=== PATIENT | female | born 1975 | race Caucasian/White ===

== ENCOUNTER 2016-11-20 15:05 | Emergency (ER) | payer OTHER ==
[~2016-11-20 15:05] MED LIST: CHLORTHALIDONE50 MG PO; HYCET1 ML PO; METFORMIN HCL500 MG PO
--- NOTE | 2016-11-20 16:25 | DIAGNOSTIC IMAGING REPORT ---
PROCEDURE: XR CHEST 1 VIEW INDICATION: CHEST PAIN TECHNIQUE: Single view chest. 1550 hours COMPARISON: 01/28/2010 FINDINGS: The cardiopulmonary contour and central vasculature are stable, within normal limits. The lungs are clear without focal consolidation, pleural effusion or pneumothorax. The osseous structures are intact. IMPRESSION: 1. No evidence of acute cardiopulmonary disease.
--- NOTE | 2016-11-20 16:44 | DIAGNOSTIC IMAGING REPORT ---
PROCEDURE: CT HEAD WITHOUT CONTRAST INDICATION: STROKE SYMPTOMS PAST 4 - 5 HOURS TECHNIQUE: Axial CT images were acquired through the head. Coronal and sagittal reformations were created. COMPARISON: None. FINDINGS: No acute intraparenchymal or extra-axial hemorrhages. No mass, mass effect or midline shift. Normal ventricles and basal cisterns. Normal liu-white matter differentiation without edema. No fractures. Maxillary sinusitis. Normal extracranial soft tissues including orbits. IMPRESSION: 1. No CT evidence of acute intracranial process. 2. Maxillary sinusitis. All CT scans at this facility use dose modulation, iterative reconstruction, and/or weight-based dosing when appropriate to reduce radiation dose to as low as reasonably achievable.
--- NOTE | 2016-11-20 18:10 | ED CLINICAL REPORT ---
Clinical Report - Physicians/Mid Levels [facility] [address] [place] [address] 11/20/2016 15:06 Patient: TAMIE IBANEZ Time Seen: 1509; initial patient contact. Arrived- By private vehicle. Historian- patient. HISTORY OF PRESENT ILLNESS Chief Complaint: CHEST PAIN. It is described as located in the left chest area. No radiation. This started today and is still present but is improving. It was abrupt in onset and has been constant but is not gone now. Onset during rest. At its maximum, severity described as moderate. When seen in the E.D., severity described as moderate. Modifying factors. Not worsened by exertion. Not worsened by anything. Not relieved by anything. No nausea, vomiting, difficulty breathing or diaphoresis. (no unilateral leg swelling, hemoptysis, history of DVT/PE, recent trauma or surgery). No additional chest pain. Similar symptoms previously: None. REVIEW OF SYSTEMS No fever, chills or pedal edema. All systems otherwise negative, except as recorded above. PAST HISTORY See nurses notes. Denies the following risk factors for DVT/PE - history of DVT and pulmonary embolism, recent surgery, recent SD and congestive heart failure. Denies the following risk factors for DVT/PE - cancer, clotting disorder, estrogens, obesity and immobility. Denies the following risk factors for DVT/PE - advanced in age. SOCIAL HISTORY Never smoker. No alcohol use or drug use. Is a local resident. FAMILY HISTORY No history of heart disease. No family history of premature onset heart disease. ADDITIONAL NOTES The nursing notes have been reviewed. PHYSICAL EXAM Vital Signs: 11/20/2016 15:11 BP: 150/103. HR: 77. RR: 18. O2 saturation: 99%. Temp: 98.2 F. Pain level now: 4/10. Blood pressure normal. Oxygen saturation normal. Appearance: Alert. Oriented X3. No acute distress. Eyes: Pupils equal, round and reactive to light. Eyes normal inspection. ENT: Ears normal. Nose normal. Pharynx normal. Neck: Normal inspection. Neck supple. CVS: Normal heart rate and rhythm. Heart sounds normal. Pulses normal. Respiratory: No respiratory distress. Breath sounds normal. Chest nontender. Abdomen: Soft and nontender. Bowel sounds normal. Skin: Skin warm and dry. Normal skin color. No rash. Normal skin turgor. Extremities: Extremities exhibit normal ROM. No lower extremity edema. LABS, X-RAYS, AND EKG EKG: No acute ischemia. Normal sinus rhythm. Normal P waves. Normal RUSSEL. Normal QRS complex. Normal axis. Normal ST and T waves, QT and QTc. Chest X-ray: (PROCEDURE: XR CHEST 1 VIEW INDICATION: CHEST PAIN TECHNIQUE: Single view chest. 1550 hours COMPARISON: 01/28/2010 FINDINGS: The cardiopulmonary contour and central vasculature are stable, within normal limits. The lungs are clear without focal consolidation, pleural effusion or pneumothorax. The osseous structures are intact. IMPRESSION: 1. No evidence of acute cardiopulmonary disease.). Laboratory Tests: UA-Culture if indicated: (MAICO: 11/20/2016 16:12) ( [facility] 11/20/2016 17:09) Final results Test Result Flag Units (Reference) URINE COLOR YELLOW URINE APPEARANCE CLEAR URINE GLUCOSE NEGATIVE (NEGATIVE) URINE BILIRUBIN NEGATIVE (NEGATIVE) URINE KETONE NEGATIVE (NEGATIVE) URINE SPECIFIC GRAVITY 1.025 (1.010-1.030) URINE PH 5.5 (5.0-8.0) URINE PROTEIN NEGATIVE (NEGATIVE) URINE UROBILINOGEN 0.2 EU/dL (0.2-1.0) URINE NITRITE NEGATIVE (NEGATIVE) URINE BLOOD NEGATIVE (NEGATIVE) URINE LEUK ESTERASE POSITIVE (NEGATIVE) URINE RBC 1-3 rbc/hpf (0-1) URINE WBC 3-5 wbc/hpf (0-1) URINE EPITHELIAL CELLS 3-5 EPI/hpf (0-5) URINE BACTERIA MODERATE (2+ TO 3+) (NONE SEEN) URINE COMMENT CULTURE INDICATED URINE CULTURES ARE SET-UP BASED ON THE FOLLOWING CRITERIA:POSITIVE NITRITEPOSITIVE LEUKOCYTE ESTERASEGREATER THAN 10 WHITE BLOOD CELLSMODERATE (2+) OR GREATER BACTERIA CBC w Diff: (MAICO: 11/20/2016 15:27) ( [facility] 11/20/2016 15:37) Final results Test Result Flag Units (Reference) WHITE BLOOD COUNT 8.5 K/uL (4.5-11.5) RED BLOOD COUNT 5.04 M/uL (4.00-5.20) HEMOGLOBIN 13.9 gm/dL (12.0-16.0) HEMATOCRIT 41.5 % (36.0-46.0) MEAN CELL VOLUME 82 fL (80-100) MEAN CORPUSCULAR HGB 28 pg (26-34) MEAN CORPUSCULAR HGB CONC 34 g/dL (31-37) RED CELL DISTRIBUTION WIDTH 12.9 % (11.6-14.8) PLATELET COUNT 302 K/uL (150-400) NEUTROPHIL % 59.1 % (50-75) LYMPH % 32.0 % (25-40) MONO % 6.4 % (3-14) EOSINOPHIL % 1.7 % (0-4) BASOPHIL % 0.8 % (0-2) PT with INR: (MAICO: 11/20/2016 15:27) ( [facility] 11/20/2016 15:42) Final results Test Result Flag Units (Reference) INR 1.0 (0.8-1.2) Low Intensity Therapy: INR 1.5-2.0 PT range 18.5-23.1Mod.Intensity Therapy: INR 2.0-3.0 PT range 23.1-31.5High Intensity Therapy: INR 2.5-3.5 PT range 27.4-35.5High Intensity Therapy 2: INR 3.0-4.0 PT range 31.5-39.3 APTT 35 H SECONDS (24-34) Troponin-I: (MAICO: 11/20/2016 17:35) ( [facility] 11/20/2016 18:08) Final results Test Result Flag Units (Reference) TROPONIN I <0.05 ng/mL (0.00-1.5) TROPONIN REFERENCE RANGE:<0.1 NEGATIVE0.1-1.5 INDETERMINANT>1.5 POSITIVE Urine Drug Screen: (MAICO: 11/20/2016 16:12) ( [facility] 11/20/2016 16:40) Final results Test Result Flag Units (Reference) AMPHETAMINE/METHAMPHETAMINE NEGATIVE (NEGATIVE) BARBITURATE NEGATIVE (NEGATIVE) BENZODIAZEPINE NEGATIVE (NEGATIVE) CANNABINOID NEGATIVE (NEGATIVE) COCAINE NEGATIVE (NEGATIVE) ECSTASY NEGATIVE (NEGATIVE) METHADONE NEGATIVE (NEGATIVE) OPIATE POSITIVE H (NEGATIVE) The urine drug screen is a qualitative screening test fordrug overdose and abuse. All screen results should beconsidered as presumptive.Drugs screened for are as follows:BenzodiazepinesCocaineAmphetamines/MetamphetaminesTHC (Tetrahydrocannabinol)OpiatesBarbituratesEcstasyMethadonePositive results are unconfirmed. For confirmation, notifythe lab for the specimen to be sent to the reference lab.All confirmations must be performed by a differentmethodology.The ingestion of natural herbal and plant productscontaining Ephedra/Ephedra metabolites can produce in urineone or more substances capable of cross reacting withamphetamine/methamphetamine immunoassays. These testsprovide a preliminary result only. A more specificalternative chemical method must be used to obtain aconfirmed analytical result. CMP: (MAICO: 11/20/2016 15:27) ( MsgRcvd 11/20/2016 15:53) Final results Test Result Flag Units (Reference) GLUCOSE 86 mg/dL (70-110) BUN 15 mg/dL (7-18) CREATININE 1.0 mg/dL (0.6-1.3) Estimated GFR >60 mL/min Estimated GFR- >60 mL/min Note: Persistent reduction over 3 months in eGFR<60 mL/min/1.73 m2 defines CKD. Patients with eGFR values>=60 mL/min/1.73 m2 may also have CKD if evidence ofpersistent proteinuria. Additional information may be foundat www.kidney.org. SODIUM 138 mmol/L (136-145) POTASSIUM 3.5 mmol/L (3.5-5.1) CHLORIDE 102 mmol/L (98-107) CARBON DIOXIDE 27 mmol/L (21-32) CALCIUM 9.0 mg/dL (8.5-10.1) TOTAL PROTEIN 7.8 g/dL (6.4-8.2) ALBUMIN 3.8 g/dL (3.3-5.0) BILIRUBIN, TOTAL 0.4 mg/dL (0.0-1.0) ALKALINE PHOSPHATASE 78 U/L (46-116) AST (SGOT) 14 L U/L (15-37) ALT (SGPT) 24 U/L (12-78) TROPONIN I <0.05 ng/mL (0.00-1.5) TROPONIN REFERENCE RANGE:<0.1 NEGATIVE0.1-1.5 INDETERMINANT>1.5 POSITIVE BETA HCG, QUANTITATIVE 1 mIU/mL REFERENCE RANGE:Adult Males: <2 mIU/mLNon- Females: <6 mIU/mL Females:Approximate Approximate hCGGestational Age Range (mIU/mL) 0-1 week 0-501-2 weeks 40-3002-3 weeks 100-84576-9 weeks 500-42517-1 months 5,000-200,0002-3 months 10,000-100,0002nd trimester 3,000-50,0003rd trimester 1,000-50,000 Culture, Urine: (MAICO: 11/20/2016 16:12) ( MsgRcvd 11/22/2016 11:59) Final results Test Result Flag Units (Reference) CULTURE, URINE DATE: 11/22/16 NO SIGNIFICANT ISOLATION: NO SIGNIFICANT ISOLATION PRELIM REPORT: FINAL REPORT . PROGRESS AND PROCEDURES Course of Care: the patient is a pleasant 41-year-old female with no pertinent past medical history presenting for reevaluation of the sided chest pain. At this time differential diagnosis includes pulmonary embolism, acute myocardial infarction, pneumonia, spontaneous pneumothorax. Patient be evaluated with EKG, chest x-ray, and laboratory studies. Because the onset of the symptoms and time course, delta troponin will be ordered. Patient is currently resting in bed in no acute distress. Vital signs are noted to be unremarkable. Patient is currently PE RC negative. Do not feel further workup for pulmonary embolism is required at this time. Patient is agreeable to the treatment and plan. The patient's workup was noted for the findings above. Chest x-ray and EKG noted to be unremarkable. Troponin 1 is noted to be negative. Second troponin will be drawn. Patient is currently resting in bed in no acute distress. Patient continues to be hemodynamically stable. Second troponin was noted to be negative as well. The troponin workup is negative. Patient is at low risk for acute myocardial infarction. Patient is stable outpatient candidate. Recommendations for outpatient management through PCP and referral to cardiology recommended. I discussion with patient in regards to her workup here in the emergency department today and reasons to return to the emergency department as well as home care, follow-up. all questions have been answered. The patient expressed understanding of these instructions and was agreeable to them. Disposition: Discharged. Condition: good. CLINICAL IMPRESSION 11/20/2016 16:47 Pain level now: 12/11. 11/20/2016 16:46 BP: 124/79. HR: 72. RR: 17. O2 saturation: 99%. Temp: 98 F. Blood pressure normal. Oxygen saturation normal. Atypical chest pain (acute left). INSTRUCTIONS Warnings: GENERAL WARNINGS: Return or contact your physician immediately if your condition worsens or changes unexpectedly, if not improving as expected, or if other problems arise. SPECIFICALLY, return if you develop chest, neck, jaw, shoulder, arm, or back pain, difficulty breathing, a fluttering sensation in your chest, lightheadedness, fainting, excessive fatigue, or sudden sweating. Your Current Medications: CONTINUE TAKING THE FOLLOWING MEDICATIONS: Chlorthalidone Oral : Tablet 50 mg, 1 tablet daily. MetFORMIN HCl Oral : 500 mg 3x a day. Tamiflu Oral : last dose 11/19/2016. Follow-up: Return to the emergency department as needed. Follow up with your doctor in three days. Reason for referral: recheck today's concerns. Summary of care provided to patient via paper. Screening today revealed the patient's blood pressure to be in the normal range. The patient should follow up with a primary care provider for blood pressure management. Understanding of the discharge instructions verbalized by patient. (Electronically signed by Tai Whitehead Dr. 11/26/2016 23:06)
--- NOTE | 2016-11-20 18:10 | ED ORDER SUMMARY ---
..... Patient: TAMIE IBANEZ OrderSheet [facility] VisitID: [id number] [address] [place] [address] 41y, F Registration Date/Time: 11/20/2016 ORDER SHEET Weight: 87.9 kg (stated) Allergies: Compazine, Sulfa Drugs GENERAL ORDERS: [employer] (Continuous) (CP) (15:11/20/2016 Carlitos Monroy) (Ack 15:14 LNations ER Tech1) (15:18 JBoardley R.N.) EKG - ER Stat (15:11/20/2016 Carlitos Monroy) (Ack 15:14 LNations ER Tech1) (15:16 LNations ER Tech1) Pulse oximeter (15:11/20/2016 Carlitos Monroy) (Ack 15:14 LNations ER Tech1) (15:18 JBoardley R.N.) CBC w Diff Urgent (15:11/20/2016 Carlitos Monroy) (Ack 15:14 LNations ER Tech1) (15:29 JBoardley R.N.) CMP Urgent (15:11/20/2016 Carlitos Monroy) (Ack 15:14 LNations ER Tech1) (15:29 JBoardley R.N.) Serum Quantitative Urgent (15:11/20/2016 Carlitos Monroy) (Ack 15:14 LNations ER Tech1) (15:29 JBoardley R.N.) CT Head wo Cont Urgent (15:11/20/2016 Carlitos Monroy) (Ack 15:26 LNations ER Tech1) (15:36 LNations ER Tech1) PT with INR Urgent (15:11/20/2016 Carlitos Monroy) (Ack 15:26 LNations ER Tech1) (15:29 JBoardley R.N.) PTT Urgent (15:11/20/2016 Carlitos Monroy) (Ack 15:26 LNations ER Tech1) (15:29 JBoardley R.N.) Troponin-I Urgent (15:11/20/2016 Carlitos Monroy) (Ack 15:26 LNations ER Tech1) (15:29 JBoardley R.N.) Chest 1V Urgent (15:24 11/20/2016 Carlitos Monroy) (Ack 15:26 LNations ER Tech1) (15:36 LNations ER Tech1) UA-Culture if indicated Urgent (16:09 11/20/2016 Carlitos Monroy) (Ack 16:12 Leonard) (16:26 JBoardley R.N.) Urine Drug Screen Urgent (16:09 11/20/2016 Carlitos Monroy) (Ack 16:12 Leonard) (16:26 JBoardley R.N.) Troponin-I (repeat troponin draw 2 hours after first draw) Urgent (16:41 11/20/2016 Carlitos Monroy) (Ack 16:45 LNations ER Tech1) (17:36 JBoardley R.N.) MEDICATION ORDERS: Aspirin PO 325 mg (Do not crush or chew, NOW) (15:30 11/20/2016 Carlitos Monroy) (Ack 15:31 JBoardley R.N.) (15:32 JBoardley R.N.) IV FLUIDS: IV Saline Lock (15:09 11/20/2016 Carlitos Monroy) (Ack 15:19 JBoardley R.N.) (15:29 JBoardley R.N.) ORDER SHEET NOTES: [Electronically signed by Carlos Kevin R.N. (18:27 11/20/2016)] [Electronically signed by Tai Whitehead Dr. (23:06 11/26/2016)] [Electronically locked/signed by Carlos Kevin R.N. (18:27 11/20/2016)]
--- NOTE | 2016-11-20 18:10 | ED CLINICAL REPORT ---
Clinical Report - Physicians/Mid Levels [facility] [address] [place] [address] 11/20/2016 15:06 Patient: TAMIE IBANEZ Time Seen: 1509; initial patient contact. Arrived- By private vehicle. Historian- patient. HISTORY OF PRESENT ILLNESS Chief Complaint: CHEST PAIN. It is described as located in the left chest area. No radiation. This started today and is still present but is improving. It was abrupt in onset and has been constant but is not gone now. Onset during rest. At its maximum, severity described as moderate. When seen in the E.D., severity described as moderate. Modifying factors. Not worsened by exertion. Not worsened by anything. Not relieved by anything. No nausea, vomiting, difficulty breathing or diaphoresis. (no unilateral leg swelling, hemoptysis, history of DVT/PE, recent trauma or surgery). No additional chest pain. Similar symptoms previously: None. REVIEW OF SYSTEMS No fever, chills or pedal edema. All systems otherwise negative, except as recorded above. PAST HISTORY See nurses notes. Denies the following risk factors for DVT/PE - history of DVT and pulmonary embolism, recent surgery, recent VA and congestive heart failure. Denies the following risk factors for DVT/PE - cancer, clotting disorder, estrogens, obesity and immobility. Denies the following risk factors for DVT/PE - advanced in age. SOCIAL HISTORY Never smoker. No alcohol use or drug use. Is a local resident. FAMILY HISTORY No history of heart disease. No family history of premature onset heart disease. ADDITIONAL NOTES The nursing notes have been reviewed. PHYSICAL EXAM Vital Signs: 11/20/2016 15:11 BP: 150/103. HR: 77. RR: 18. O2 saturation: 99%. Temp: 98.2 F. Pain level now: 4/10. Blood pressure normal. Oxygen saturation normal. Appearance: Alert. Oriented X3. No acute distress. Eyes: Pupils equal, round and reactive to light. Eyes normal inspection. ENT: Ears normal. Nose normal. Pharynx normal. Neck: Normal inspection. Neck supple. CVS: Normal heart rate and rhythm. Heart sounds normal. Pulses normal. Respiratory: No respiratory distress. Breath sounds normal. Chest nontender. Abdomen: Soft and nontender. Bowel sounds normal. Skin: Skin warm and dry. Normal skin color. No rash. Normal skin turgor. Extremities: Extremities exhibit normal ROM. No lower extremity edema. LABS, X-RAYS, AND EKG EKG: No acute ischemia. Normal sinus rhythm. Normal P waves. Normal RUSSEL. Normal QRS complex. Normal axis. Normal ST and T waves, QT and QTc. Chest X-ray: (PROCEDURE: XR CHEST 1 VIEW INDICATION: CHEST PAIN TECHNIQUE: Single view chest. 1550 hours COMPARISON: 01/28/2010 FINDINGS: The cardiopulmonary contour and central vasculature are stable, within normal limits. The lungs are clear without focal consolidation, pleural effusion or pneumothorax. The osseous structures are intact. IMPRESSION: 1. No evidence of acute cardiopulmonary disease.). Laboratory Tests: UA-Culture if indicated: (MAICO: 11/20/2016 16:12) ( [facility] 11/20/2016 17:09) Final results Test Result Flag Units (Reference) URINE COLOR YELLOW URINE APPEARANCE CLEAR URINE GLUCOSE NEGATIVE (NEGATIVE) URINE BILIRUBIN NEGATIVE (NEGATIVE) URINE KETONE NEGATIVE (NEGATIVE) URINE SPECIFIC GRAVITY 1.025 (1.010-1.030) URINE PH 5.5 (5.0-8.0) URINE PROTEIN NEGATIVE (NEGATIVE) URINE UROBILINOGEN 0.2 EU/dL (0.2-1.0) URINE NITRITE NEGATIVE (NEGATIVE) URINE BLOOD NEGATIVE (NEGATIVE) URINE LEUK ESTERASE POSITIVE (NEGATIVE) URINE RBC 1-3 rbc/hpf (0-1) URINE WBC 3-5 wbc/hpf (0-1) URINE EPITHELIAL CELLS 3-5 EPI/hpf (0-5) URINE BACTERIA MODERATE (2+ TO 3+) (NONE SEEN) URINE COMMENT CULTURE INDICATED URINE CULTURES ARE SET-UP BASED ON THE FOLLOWING CRITERIA:POSITIVE NITRITEPOSITIVE LEUKOCYTE ESTERASEGREATER THAN 10 WHITE BLOOD CELLSMODERATE (2+) OR GREATER BACTERIA CBC w Diff: (MAICO: 11/20/2016 15:27) ( [facility] 11/20/2016 15:37) Final results Test Result Flag Units (Reference) WHITE BLOOD COUNT 8.5 K/uL (4.5-11.5) RED BLOOD COUNT 5.04 M/uL (4.00-5.20) HEMOGLOBIN 13.9 gm/dL (12.0-16.0) HEMATOCRIT 41.5 % (36.0-46.0) MEAN CELL VOLUME 82 fL (80-100) MEAN CORPUSCULAR HGB 28 pg (26-34) MEAN CORPUSCULAR HGB CONC 34 g/dL (31-37) RED CELL DISTRIBUTION WIDTH 12.9 % (11.6-14.8) PLATELET COUNT 302 K/uL (150-400) NEUTROPHIL % 59.1 % (50-75) LYMPH % 32.0 % (25-40) MONO % 6.4 % (3-14) EOSINOPHIL % 1.7 % (0-4) BASOPHIL % 0.8 % (0-2) PT with INR: (MAICO: 11/20/2016 15:27) ( [facility] 11/20/2016 15:42) Final results Test Result Flag Units (Reference) INR 1.0 (0.8-1.2) Low Intensity Therapy: INR 1.5-2.0 PT range 18.5-23.1Mod.Intensity Therapy: INR 2.0-3.0 PT range 23.1-31.5High Intensity Therapy: INR 2.5-3.5 PT range 27.4-35.5High Intensity Therapy 2: INR 3.0-4.0 PT range 31.5-39.3 APTT 35 H SECONDS (24-34) Troponin-I: (MAICO: 11/20/2016 17:35) ( [facility] 11/20/2016 18:08) Final results Test Result Flag Units (Reference) TROPONIN I <0.05 ng/mL (0.00-1.5) TROPONIN REFERENCE RANGE:<0.1 NEGATIVE0.1-1.5 INDETERMINANT>1.5 POSITIVE Urine Drug Screen: (MAICO: 11/20/2016 16:12) ( [facility] 11/20/2016 16:40) Final results Test Result Flag Units (Reference) AMPHETAMINE/METHAMPHETAMINE NEGATIVE (NEGATIVE) BARBITURATE NEGATIVE (NEGATIVE) BENZODIAZEPINE NEGATIVE (NEGATIVE) CANNABINOID NEGATIVE (NEGATIVE) COCAINE NEGATIVE (NEGATIVE) ECSTASY NEGATIVE (NEGATIVE) METHADONE NEGATIVE (NEGATIVE) OPIATE POSITIVE H (NEGATIVE) The urine drug screen is a qualitative screening test fordrug overdose and abuse. All screen results should beconsidered as presumptive.Drugs screened for are as follows:BenzodiazepinesCocaineAmphetamines/MetamphetaminesTHC (Tetrahydrocannabinol)OpiatesBarbituratesEcstasyMethadonePositive results are unconfirmed. For confirmation, notifythe lab for the specimen to be sent to the reference lab.All confirmations must be performed by a differentmethodology.The ingestion of natural herbal and plant productscontaining Ephedra/Ephedra metabolites can produce in urineone or more substances capable of cross reacting withamphetamine/methamphetamine immunoassays. These testsprovide a preliminary result only. A more specificalternative chemical method must be used to obtain aconfirmed analytical result. CMP: (MAICO: 11/20/2016 15:27) ( MsgRcvd 11/20/2016 15:53) Final results Test Result Flag Units (Reference) GLUCOSE 86 mg/dL (70-110) BUN 15 mg/dL (7-18) CREATININE 1.0 mg/dL (0.6-1.3) Estimated GFR >60 mL/min Estimated GFR- >60 mL/min Note: Persistent reduction over 3 months in eGFR<60 mL/min/1.73 m2 defines CKD. Patients with eGFR values>=60 mL/min/1.73 m2 may also have CKD if evidence ofpersistent proteinuria. Additional information may be foundat www.kidney.org. SODIUM 138 mmol/L (136-145) POTASSIUM 3.5 mmol/L (3.5-5.1) CHLORIDE 102 mmol/L (98-107) CARBON DIOXIDE 27 mmol/L (21-32) CALCIUM 9.0 mg/dL (8.5-10.1) TOTAL PROTEIN 7.8 g/dL (6.4-8.2) ALBUMIN 3.8 g/dL (3.3-5.0) BILIRUBIN, TOTAL 0.4 mg/dL (0.0-1.0) ALKALINE PHOSPHATASE 78 U/L (46-116) AST (SGOT) 14 L U/L (15-37) ALT (SGPT) 24 U/L (12-78) TROPONIN I <0.05 ng/mL (0.00-1.5) TROPONIN REFERENCE RANGE:<0.1 NEGATIVE0.1-1.5 INDETERMINANT>1.5 POSITIVE BETA HCG, QUANTITATIVE 1 mIU/mL REFERENCE RANGE:Adult Males: <2 mIU/mLNon- Females: <6 mIU/mL Females:Approximate Approximate hCGGestational Age Range (mIU/mL) 0-1 week 0-501-2 weeks 40-3002-3 weeks 100-86471-1 weeks 500-68419-5 months 5,000-200,0002-3 months 10,000-100,0002nd trimester 3,000-50,0003rd trimester 1,000-50,000 Culture, Urine: (MAICO: 11/20/2016 16:12) ( MsgRcvd 11/22/2016 11:59) Final results Test Result Flag Units (Reference) CULTURE, URINE DATE: 11/22/16 NO SIGNIFICANT ISOLATION: NO SIGNIFICANT ISOLATION PRELIM REPORT: FINAL REPORT . PROGRESS AND PROCEDURES Course of Care: the patient is a pleasant 41-year-old female with no pertinent past medical history presenting for reevaluation of the sided chest pain. At this time differential diagnosis includes pulmonary embolism, acute myocardial infarction, pneumonia, spontaneous pneumothorax. Patient be evaluated with EKG, chest x-ray, and laboratory studies. Because the onset of the symptoms and time course, delta troponin will be ordered. Patient is currently resting in bed in no acute distress. Vital signs are noted to be unremarkable. Patient is currently PE RC negative. Do not feel further workup for pulmonary embolism is required at this time. Patient is agreeable to the treatment and plan. The patient's workup was noted for the findings above. Chest x-ray and EKG noted to be unremarkable. Troponin 1 is noted to be negative. Second troponin will be drawn. Patient is currently resting in bed in no acute distress. Patient continues to be hemodynamically stable. Second troponin was noted to be negative as well. The troponin workup is negative. Patient is at low risk for acute myocardial infarction. Patient is stable outpatient candidate. Recommendations for outpatient management through PCP and referral to cardiology recommended. I discussion with patient in regards to her workup here in the emergency department today and reasons to return to the emergency department as well as home care, follow-up. all questions have been answered. The patient expressed understanding of these instructions and was agreeable to them. Disposition: Discharged. Condition: good. CLINICAL IMPRESSION 11/20/2016 16:47 Pain level now: 12/11. 11/20/2016 16:46 BP: 124/79. HR: 72. RR: 17. O2 saturation: 99%. Temp: 98 F. Blood pressure normal. Oxygen saturation normal. Atypical chest pain (acute left). INSTRUCTIONS Warnings: GENERAL WARNINGS: Return or contact your physician immediately if your condition worsens or changes unexpectedly, if not improving as expected, or if other problems arise. SPECIFICALLY, return if you develop chest, neck, jaw, shoulder, arm, or back pain, difficulty breathing, a fluttering sensation in your chest, lightheadedness, fainting, excessive fatigue, or sudden sweating. Your Current Medications: CONTINUE TAKING THE FOLLOWING MEDICATIONS: Chlorthalidone Oral : Tablet 50 mg, 1 tablet daily. MetFORMIN HCl Oral : 500 mg 3x a day. Tamiflu Oral : last dose 11/19/2016. Follow-up: Return to the emergency department as needed. Follow up with your doctor in three days. Reason for referral: recheck today's concerns. Summary of care provided to patient via paper. Screening today revealed the patient's blood pressure to be in the normal range. The patient should follow up with a primary care provider for blood pressure management. Understanding of the discharge instructions verbalized by patient. (Electronically signed by Tai Whitehead Dr. 11/26/2016 23:06)
--- NOTE | 2016-11-20 18:10 | ED ORDER SUMMARY ---
..... Patient: TAMIE IBANEZ [facility] VisitID: [id number] [address] [place] [address] 41y, F Registration Date/Time: 11/20/2016 ORDER SHEET Weight: 87.9 kg (stated) Allergies: Compazine, Sulfa Drugs GENERAL ORDERS: Ship Fastener (Continuous) (CP) (15:11/20/2016 Carlitos Monroy) (Ack 15:14 LNations ER Tech1) (15:18 JBoardley R.N.) EKG - ER Stat (15:11/20/2016 Carlitos Monroy) (Ack 15:14 LNations ER Tech1) (15:16 LNations ER Tech1) Pulse oximeter (15:11/20/2016 Carlitos Monroy) (Ack 15:14 LNations ER Tech1) (15:18 JBoardley R.N.) CBC w Diff Urgent (15:11/20/2016 Carlitos Monroy) (Ack 15:14 LNations ER Tech1) (15:29 JBoardley R.N.) CMP Urgent (15:11/20/2016 Carlitos Monroy) (Ack 15:14 LNations ER Tech1) (15:29 JBoardley R.N.) Serum Quantitative Urgent (15:11/20/2016 Carlitos Monroy) (Ack 15:14 LNations ER Tech1) (15:29 JBoardley R.N.) CT Head wo Cont Urgent (15:11/20/2016 Carlitos Monroy) (Ack 15:26 LNations ER Tech1) (15:36 LNations ER Tech1) PT with INR Urgent (15:11/20/2016 Carlitos Monroy) (Ack 15:26 LNations ER Tech1) (15:29 JBoardley R.N.) PTT Urgent (15:11/20/2016 Carlitos Monroy) (Ack 15:26 LNations ER Tech1) (15:29 JBoardley R.N.) Troponin-I Urgent (15:11/20/2016 Carlitos Monroy) (Ack 15:26 LNations ER Tech1) (15:29 JBoardley R.N.) Chest 1V Urgent (15:24 11/20/2016 Carlitos Monroy) (Ack 15:26 LNations ER Tech1) (15:36 LNations ER Tech1) UA-Culture if indicated Urgent (16:09 11/20/2016 Carlitos Monroy) (Ack 16:12 Leonard) (16:26 JBoardley R.N.) Urine Drug Screen Urgent (16:09 11/20/2016 Carlitos Monroy) (Ack 16:12 Leonard) (16:26 JBoardley R.N.) Troponin-I (repeat troponin draw 2 hours after first draw) Urgent (16:41 11/20/2016 Carlitos Monroy) (Ack 16:45 LNations ER Tech1) (17:36 JBoardley R.N.) MEDICATION ORDERS: Aspirin PO 325 mg (Do not crush or chew, NOW) (15:30 11/20/2016 Carlitos Monroy) (Ack 15:31 JBoardley R.N.) (15:32 JBoardley R.N.) IV FLUIDS: IV Saline Lock (15:09 11/20/2016 Carlitos Monroy) (Ack 15:19 JBoardley R.N.) (15:29 JBoardley R.N.) ORDER SHEET NOTES: [Electronically signed by Carlos Kevin R.N. (18:27 11/20/2016)] [Electronically signed by Tai Whitehead Dr. (23:06 11/26/2016)] [Electronically locked/signed by Carlos Kevin R.N. (18:27 11/20/2016)]
--- NOTE | 2016-11-20 18:10 | ED NURSING NOTES ---
Clinical Report - [facility] [place] [address] 11/20/2016 15:06 Patient: TAMIE IBANEZ TRIAGE Triage time 15:11. Acuity: LEVEL 2. Chief Complaint: CHEST PAIN. 15:11 11/20/16. 15:11 11/20/16. Alert. No acute distress. ( Pt sent from [facility]. Pt with history of CVA in the past. Pt has had chest pain for 2 hours. Pt is having sternal chest pain with SOB. Pt also states that she has pain down her left arm. Pt was recently was diagnosed with influenza/bronchitis.). SEPSIS SCREEN: Sepsis Screen. Negative (no infection suspected/documented). --15:18 Carlos Kevin R.N. 15:11 11/20/16. BP: 150/103. HR: 77. RR: 18. O2 saturation: 99% on room air. Temp: 98.2 F (oral). Pain level now: 12/11. --15:18 Carlos Kevin R.N. Weight: 87.9 kg stated. Height/Length: 62 inches Per Patient. BMI: 35.5. --15:11 Carlos Kevin R.N. Medications Chlorthalidone Oral (Tablet 50 mg) 1 tablet, daily. --15:16 Carlos Kevin R.N. MetFORMIN HCl Oral 500 mg, 3x a day. --15:16 Carlos Kevin R.N. Tamiflu Oral (last dose 11/19/2016). --15:16 Carlos Kevin R.N. The following entry was struck and corrected by Carlos Kevin R.N., 15:16 (11/20/16) Reason for correction - other(correction). <<STRICKEN ENTRY-- Chlorthalidone Oral (Tablet 25 mg), daily. --15:16 Carlos Kevin R.N. --END STRIKE>>. Medication/allergy information source: the patient and patient's family. --15:18 Carlos Kevin R.N. Allergies Compazine. Sulfa Drugs. --15:14 Carlos Kevin R.N. History Arrived by private vehicle. Historian: patient and family. Accompanied by family. Primary physician ([facility]). 15:11/20/16. Onset. (2 hours ago). She has had difficulty breathing. Reports experiencing sweating episodes. Treatment [employer]INO [employer]OST: None. PAST MEDICAL HX: Last normal menstrual period- Sep 2016-[facility]. Immunizations not up to date. SOCIAL HX: Never smoker. No alcohol use or drug use. No infectious disease exposure. ABUSE ASSESSMENT: No report of abuse. FALL RISK ASSESSMENT: Fall risk assessment completed. No fall risk identified. NUTRITIONAL RISK ASSESSMENT: The nutritional risk assessment revealed no deficiencies. FUNCTIONAL ASSESSMENT: Functional assessment: no impairments noted. LEARNING NEEDS ASSESSMENT: The learning needs assessment revealed no barriers. SKIN INTEGRITY ASSESSMENT: Skin integrity risk assessment completed. No skin integrity risk identified. --15:18 Carlos Kevin R.N. PROBLEMS: CVA - Cerebrovascular Accident. Hypokalemia. Pelvic Inflammatory Disease. Abdominal Pain. UTI - Urinary Tract Infection. Ovarian Cyst. Endometriosis. Hypertension. Spontaneous (Miscarriage). Polycystic Ovary Disease. Asthma. --15:15 Carlos Kevin R.N. Ectopic [RuleOut]. --15:15 Carlos Kevin R.N. ADDITIONAL SURGERIES: Appendectomy. Laparoscopy. Previous Abdominal Surgery. Tympanostomy Tubes. --15:15 Carlos Kevin R.N. Assessment 15:11/20/16. --15:18 Carlos Kevin R.N. Interventions 15:11/20/16. 15:11/20/16. ID and allergy band on patient. To treatment room. --15:18 Carlos Kevin R.N. PHYSICAL ASSESSMENT 15:11/20/16. Ambulatory to room. GENERAL / NEURO / PSYCH: Alert. Oriented X 4. Appears in pain. RESPIRATORY: Respirations not labored. CVS: Capillary refill less than 2 seconds. SKIN: Skin is warm and dry. --15:18 Carlos Kevin R.N. NURSING PROGRESS NOTES 15:11/20/16. The plan of care for this patient has been created. satellite project site monitor, pulse oximeter and NIBP monitor placed on patient; monitor alarms on. EKG time: (1520 PM). EKG was ordered, performed by a tech and shown to the ED physician. Head of bed elevated. Two patient identifiers checked. Call light placed in reach. Side rails up x 2. Bed placed in lowest position. Brakes of bed on. Brakes of chair on. Patient ready for evaluation- chart flagged and notification provided. --15:18 Carlos Kevin R.N. 15:21 11/20/16. BP: 164/87. HR: 68. RR: 18. O2 saturation: 100% on room air. --15:21 Carlos Kevin R.N. 15:21 11/20/16. --15:21 Carlos Kevin R.N. 15:11/20/16. Cardiac rhythm: normal sinus rhythm. --15:21 Carlos Kevin R.N. 15:11/20/16. ( FAST exam negative). --15:21 Carlos Kevin R.N. 15:29 11/20/2016 Site #1 started via IV in the right antecubital space with an 20g angiocath, with aseptic technique and good blood return; one attempt. Blood drawn: rainbow set. Labeled in the presence of the patient and sent to the lab. Saline lock flushed with 10 mL saline. --15:29 Carlos Kevin R.N. 15:32 11/20/2016 Aspirin PO 325 mg given. Allergies verified and confirmed 5 rights. --15:32 Carlos Kevin R.N. 15:34 11/20/16. Patient transported to radiology by stretcher with tech. --15:34 Carlos Kevin R.N. 15:34 11/20/16. Cardiac rhythm: normal sinus rhythm. --15:34 Carlos Kevin R.N. Patient transported to radiology and CT with tech. --15:36 Theresa Watson, REBECA Tech1 15:49 11/20/16. Patient returned from radiology by stretcher with tech. --15:49 Carlos Kevin R.N. 15:53 11/20/16. Cardiac rhythm: normal sinus rhythm. --15:53 Carlos Kevin R.N. 15:52 11/20/16. BP: 167/74. HR: 71. RR: 18. O2 saturation: 99% on room air. --15:53 Carlos Kevin R.N. 16:27 11/20/16. Patient ID band checked for patient name and birthdate: patient confirmed. Clean catch urine collected with return of yellow-colored urine; sample sent to lab for urinalysis and culture. Specimen labeled in the presence of the patient. --16:27 Carlos Kevin R.N. 16:46 11/20/16. --16:46 Carlos Kevin R.N. 16:46 11/20/16. BP: 124/79. HR: 72. RR: 17. O2 saturation: 99% on room air. Temp: 98 F (oral). --16:46 Carlos Kevin R.N. 16:46 11/20/16. Cardiac rhythm: normal sinus rhythm; (72). --16:46 Carlos Kevin R.N. 16:47 11/20/16. --16:47 Carlos Kevin R.N. 16:47 11/20/16. Pain level now: 12/11. --16:47 Carlos Kevin R.N. 16:47 11/20/16. ( Repeat lab draw at 1730 (troponin)). --16:47 Carlos Kevin R.N. 17:29 11/20/16. ( Lab to draw blood at 1730, lab called). --17:29 Carlos Kevin R.N. DISPOSITION / DISCHARGE 18:23 11/20/2016 Site #1 removed upon discharge. Catheter intact. Bandage applied. --18:23 Carlos Kevin R.N. 18:24 11/20/16. Condition at departure: improved. The goals identified in the patient's plan of care were met. No learning barriers present. Discharge instructions provided and reviewed with the patient. Reviewed warnings. Reviewed medication(s). Treatments reviewed. Patient verbalized understanding. Written instructions provided in Czech. The patient was discharged by the physician. She was discharged home and accompanied by family. She left the Emergency Department ambulatory and via private vehicle. Family member driving. FALL RISK ASSESSMENT: Fall risk assessment completed. No fall risk identified. --18:24 Carlos Kevin R.N. 18:23 11/20/16. BP: 123/67. HR: 81. RR: 14. O2 saturation: 99% on room air. Temp: 98 F (oral). --18:24 Carlos Kevin R.N. 18:24 11/20/16. Departure time: 18:24. --18:24 Carlos Kevin R.N. Locked/Released at 11/20/2016 18:27 by Carlos Kevin R.N.
--- NOTE | 2016-11-20 18:10 | ED NURSING NOTES ---
Clinical Report - Nurses [facility] [place] [address] 11/20/2016 15:06 Patient: TAMIE IBANEZ TRIAGE Triage time 15:11. Acuity: LEVEL 2. Chief Complaint: CHEST PAIN. 15:11 11/20/16. 15:11 11/20/16. Alert. No acute distress. ( Pt sent from [facility]. Pt with history of CVA in the past. Pt has had chest pain for 2 hours. Pt is having sternal chest pain with SOB. Pt also states that she has pain down her left arm. Pt was recently was diagnosed with influenza/bronchitis.). SEPSIS SCREEN: Sepsis Screen. Negative (no infection suspected/documented). --15:18 Carlos Kevin R.N. 15:11 11/20/16. BP: 150/103. HR: 77. RR: 18. O2 saturation: 99% on room air. Temp: 98.2 F (oral). Pain level now: 12/11. --15:18 Carlos Kevin R.N. Weight: 87.9 kg stated. Height/Length: 62 inches Per Patient. BMI: 35.5. --15:11 Carlos Kevin R.N. Medications Chlorthalidone Oral (Tablet 50 mg) 1 tablet, daily. --15:16 Carlos Kevin R.N. MetFORMIN HCl Oral 500 mg, 3x a day. --15:16 Carlos Kevin R.N. Tamiflu Oral (last dose 11/19/2016). --15:16 Carlos Kevin R.N. The following entry was struck and corrected by Carlos Kevin R.N., 15:16 (11/20/16) Reason for correction - other(correction). <<STRICKEN ENTRY-- Chlorthalidone Oral (Tablet 25 mg), daily. --15:16 Carlos Kevin R.N. --END STRIKE>>. Medication/allergy information source: the patient and patient's family. --15:18 Carlos Kevin R.N. Allergies Compazine. Sulfa Drugs. --15:14 Carlos Kevin R.N. History Arrived by private vehicle. Historian: patient and family. Accompanied by family. Primary physician ([facility]). 15:11/20/16. Onset. (2 hours ago). She has had difficulty breathing. Reports experiencing sweating episodes. Treatment HAND I BLOCKER: None. PAST MEDICAL HX: Last normal menstrual period- Sep 2016-[facility]. Immunizations not up to date. SOCIAL HX: Never smoker. No alcohol use or drug use. No infectious disease exposure. ABUSE ASSESSMENT: No report of abuse. FALL RISK ASSESSMENT: Fall risk assessment completed. No fall risk identified. NUTRITIONAL RISK ASSESSMENT: The nutritional risk assessment revealed no deficiencies. FUNCTIONAL ASSESSMENT: Functional assessment: no impairments noted. LEARNING NEEDS ASSESSMENT: The learning needs assessment revealed no barriers. SKIN INTEGRITY ASSESSMENT: Skin integrity risk assessment completed. No skin integrity risk identified. --15:18 Carlos Kevin R.N. PROBLEMS: CVA - Cerebrovascular Accident. Hypokalemia. Pelvic Inflammatory Disease. Abdominal Pain. UTI - Urinary Tract Infection. Ovarian Cyst. Endometriosis. Hypertension. Spontaneous (Miscarriage). Polycystic Ovary Disease. Asthma. --15:15 Carlos Kevin R.N. Ectopic [RuleOut]. --15:15 Carlos Kevin R.N. ADDITIONAL SURGERIES: Appendectomy. Laparoscopy. Previous Abdominal Surgery. Tympanostomy Tubes. --15:15 Carlos Kevin R.N. Assessment 15:11/20/16. --15:18 Carlos Kevin R.N. Interventions 15:11/20/16. 15:11/20/16. ID and allergy band on patient. To treatment room. --15:18 Carlos Kevin R.N. PHYSICAL ASSESSMENT 15:11/20/16. Ambulatory to room. GENERAL / NEURO / PSYCH: Alert. Oriented X 4. Appears in pain. RESPIRATORY: Respirations not labored. CVS: Capillary refill less than 2 seconds. SKIN: Skin is warm and dry. --15:18 Carlos Kevin R.N. NURSING PROGRESS NOTES 15:11/20/16. The plan of care for this patient has been created. motorcycle assembler, pulse oximeter and NIBP monitor placed on patient; monitor alarms on. EKG time: (1520 PM). EKG was ordered, performed by a tech and shown to the ED physician. Head of bed elevated. Two patient identifiers checked. Call light placed in reach. Side rails up x 2. Bed placed in lowest position. Brakes of bed on. Brakes of chair on. Patient ready for evaluation- chart flagged and notification provided. --15:18 Carlos Kevin R.N. 15:21 11/20/16. BP: 164/87. HR: 68. RR: 18. O2 saturation: 100% on room air. --15:21 Carlos Kevin R.N. 15:21 11/20/16. --15:21 Carlos Kevin R.N. 15:11/20/16. Cardiac rhythm: normal sinus rhythm. --15:21 Carlos Kevin R.N. 15:11/20/16. ( FAST exam negative). --15:21 Carols Kevin R.N. 15:29 11/20/2016 Site #1 started via IV in the right antecubital space with an 20g angiocath, with aseptic technique and good blood return; one attempt. Blood drawn: rainbow set. Labeled in the presence of the patient and sent to the lab. Saline lock flushed with 10 mL saline. --15:29 Carlos Kevin R.N. 15:32 11/20/2016 Aspirin PO 325 mg given. Allergies verified and confirmed 5 rights. --15:32 Carlos Kevin R.N. 15:34 11/20/16. Patient transported to radiology by stretcher with tech. --15:34 Carlos Kevin R.N. 15:34 11/20/16. Cardiac rhythm: normal sinus rhythm. --15:34 Carlos Kevin R.N. Patient transported to radiology and CT with tech. --15:36 Theresa Watson, REBECA Tech1 15:49 11/20/16. Patient returned from radiology by stretcher with tech. --15:49 Carlos Kevin R.N. 15:53 11/20/16. Cardiac rhythm: normal sinus rhythm. --15:53 Carlos Kevin R.N. 15:52 11/20/16. BP: 167/74. HR: 71. RR: 18. O2 saturation: 99% on room air. --15:53 Carlos Kevin R.N. 16:27 11/20/16. Patient ID band checked for patient name and birthdate: patient confirmed. Clean catch urine collected with return of yellow-colored urine; sample sent to lab for urinalysis and culture. Specimen labeled in the presence of the patient. --16:27 Carlos Kevin R.N. 16:46 11/20/16. --16:46 Carlos Kevin R.N. 16:46 11/20/16. BP: 124/79. HR: 72. RR: 17. O2 saturation: 99% on room air. Temp: 98 F (oral). --16:46 Carlos Kevin R.N. 16:46 11/20/16. Cardiac rhythm: normal sinus rhythm; (72). --16:46 Carlos Kevin R.N. 16:47 11/20/16. --16:47 Carlos Kevin R.N. 16:47 11/20/16. Pain level now: 12/11. --16:47 Carlos Kevin R.N. 16:47 11/20/16. ( Repeat lab draw at 1730 (troponin)). --16:47 Carlos Kevin R.N. 17:29 11/20/16. ( Lab to draw blood at 1730, lab called). --17:29 Carlos Kevin R.N. DISPOSITION / DISCHARGE 18:23 11/20/2016 Site #1 removed upon discharge. Catheter intact. Bandage applied. --18:23 Carlos Kevin R.N. 18:24 11/20/16. Condition at departure: improved. The goals identified in the patient's plan of care were met. No learning barriers present. Discharge instructions provided and reviewed with the patient. Reviewed warnings. Reviewed medication(s). Treatments reviewed. Patient verbalized understanding. Written instructions provided in Setswana. The patient was discharged by the physician. She was discharged home and accompanied by family. She left the Emergency Department ambulatory and via private vehicle. Family member driving. FALL RISK ASSESSMENT: Fall risk assessment completed. No fall risk identified. --18:24 Carlos Kevin R.N. 18:23 11/20/16. BP: 123/67. HR: 81. RR: 14. O2 saturation: 99% on room air. Temp: 98 F (oral). --18:24 Carlos Kevin R.N. 18:24 11/20/16. Departure time: 18:24. --18:24 Carlos Kevin R.N. Locked/Released at 11/20/2016 18:27 by Carlos Kevin R.N.
--- NOTE | 2016-11-26 23:06 | ED MED RECONCILIATION SUMMARY ---
Patient: TAMIE IBANEZ Medication Reconciliation Report [facility] VisitID: [id number] [address] [place] [place] [address] 41y, F Registration Date/Time: 11/20/2016 Weight: 87.9 kg Height/Length: 62 in. BMI: 35.5 ALLERGIES: Compazine, Sulfa Drugs The patient's Home Medications are listed below: CONTINUE TAKING THE FOLLOWING MEDICATIONS: Chlorthalidone Oral (50 mg) 1 tablet, daily MetFORMIN HCl Oral 500 mg, 3x a day Tamiflu Oral, last dose 11/19/2016 The source(s) of the original Home Medication information: patient's family member patient The following Medications were given to the patient in the Emergency Department: Aspirin [PO] PO 325 mg, administered: 11/20/2016 3:32:00 PM The following Medications were prescribed to the patient: None.
--- NOTE | 2016-11-26 23:06 | ED MAR SUMMARY ---
..... Medication Administration Record [facility] [address] [place] [address] Patient: TAMIE IBANEZ Visit ID: [id number] 41y, F Weight: 87.9 kg Height/Length: 62 in BMI: 35.5 ALLERGIES: Compazine, Sulfa Drugs Given 15:32 11/20/2016 Carlos Kevin R.N. Medication Administered: ASPIRIN [PO], Dose: 325 mg PO. Medication Ordered: Aspirin PO 325 mg (Do not crush or chew, NOW).
--- NOTE | 2016-11-26 23:06 | ED DISCHARGE INSTRUCTIONS ---
Patient: TAMIE IBANEZ General Instructions [facility] VisitID: [id number] [place] [address] 41y, F Registration Date/Time: 11/20/2016 11/20/2016 16:47 Pain level now: 12/11. 11/20/2016 16:46 BP: 124/79. HR: 72. RR: 17. O2 saturation: 99%. Temp: 98 F. Blood pressure normal. Oxygen saturation normal. Atypical chest pain (acute left). INSTRUCTIONS Warnings: GENERAL WARNINGS: Return or contact your physician immediately if your condition worsens or changes unexpectedly, if not improving as expected, or if other problems arise. SPECIFICALLY, return if you develop chest, neck, jaw, shoulder, arm, or back pain, difficulty breathing, a fluttering sensation in your chest, lightheadedness, fainting, excessive fatigue, or sudden sweating. Your Current Medications: CONTINUE TAKING THE FOLLOWING MEDICATIONS: Chlorthalidone Oral : Tablet 50 mg, 1 tablet daily. MetFORMIN HCl Oral : 500 mg 3x a day. Tamiflu Oral : last dose 11/19/2016. Follow-up: Return to the emergency department as needed. Follow up with your doctor in three days. Reason for referral: recheck today's concerns. Summary of care provided to patient via paper. Screening today revealed the patient's blood pressure to be in the normal range. The patient should follow up with a primary care provider for blood pressure management. Understanding of the discharge instructions verbalized by patient. ADDITIONAL INFORMATION Chest Pain, Uncertain Cause Chest pain can happen for a number of reasons. Sometimes the cause can not be determined. If yourcondition does not seem serious, and your pain does not appear to be coming from your heart, your doctor may recommend watching it closely. Sometimes the signs of a serious problem take more time to appear. Therefore, watch for the warning signs listed below. Home care After your visit, follow these recommendations: Rest today and avoid strenuous activity. Take any prescribed medicine as directed. Follow-up care Follow up with your doctor or this facility as instructed or if you do not start to feel better within 24 hours. Call 911 Get immediate medical attention if any of the following occur: A change in the type of pain: if it feels different, becomes more severe, lasts longer, or begins to spread into your shoulder, arm, neck, jaw or back Shortness of breath or increased pain with breathing Weakness, dizziness, or fainting Rapid heart beat Get prompt medical attention Call your doctor right away if any of the following occur: Cough with dark colored sputum (phlegm) or blood Fever of 100.4F(38C) or higher, or as directed by your health care provider Swelling, pain or redness in one leg You have been given the following additional information: Chest Pain, Uncertain Cause (Electronically signed by Tai Whitehead Dr. 11/26/2016 23:06)
--- NOTE | 2016-11-26 23:06 | ED MAR SUMMARY ---
..... Medication Administration Record [facility] [address] [place] [address] [address] Patient: TAMIE IBANEZ Visit ID: [id number] 41y, F Weight: 87.9 kg Height/Length: 62 in BMI: 35.5 ALLERGIES: Compazine, Sulfa Drugs Given 15:32 11/20/2016 Carlos Kevin R.N. Medication Administered: ASPIRIN [PO], Dose: 325 mg PO. Medication Ordered: Aspirin PO 325 mg (Do not crush or chew, NOW).
--- NOTE | 2016-11-26 23:06 | ED DISCHARGE INSTRUCTIONS ---
Patient: TAMIE IBANEZ General Instructions [facility] VisitID: [id number] [place] [address] 41y, F Registration Date/Time: 11/20/2016 11/20/2016 16:47 Pain level now: 12/11. 11/20/2016 16:46 BP: 124/79. HR: 72. RR: 17. O2 saturation: 99%. Temp: 98 F. Blood pressure normal. Oxygen saturation normal. Atypical chest pain (acute left). INSTRUCTIONS Warnings: GENERAL WARNINGS: Return or contact your physician immediately if your condition worsens or changes unexpectedly, if not improving as expected, or if other problems arise. SPECIFICALLY, return if you develop chest, neck, jaw, shoulder, arm, or back pain, difficulty breathing, a fluttering sensation in your chest, lightheadedness, fainting, excessive fatigue, or sudden sweating. Your Current Medications: CONTINUE TAKING THE FOLLOWING MEDICATIONS: Chlorthalidone Oral : Tablet 50 mg, 1 tablet daily. MetFORMIN HCl Oral : 500 mg 3x a day. Tamiflu Oral : last dose 11/19/2016. Follow-up: Return to the emergency department as needed. Follow up with your doctor in three days. Reason for referral: recheck today's concerns. Summary of care provided to patient via paper. Screening today revealed the patient's blood pressure to be in the normal range. The patient should follow up with a primary care provider for blood pressure management. Understanding of the discharge instructions verbalized by patient. ADDITIONAL INFORMATION Chest Pain, Uncertain Cause Chest pain can happen for a number of reasons. Sometimes the cause can not be determined. If yourcondition does not seem serious, and your pain does not appear to be coming from your heart, your doctor may recommend watching it closely. Sometimes the signs of a serious problem take more time to appear. Therefore, watch for the warning signs listed below. Home care After your visit, follow these recommendations: Rest today and avoid strenuous activity. Take any prescribed medicine as directed. Follow-up care Follow up with your doctor or this facility as instructed or if you do not start to feel better within 24 hours. Call 911 Get immediate medical attention if any of the following occur: A change in the type of pain: if it feels different, becomes more severe, lasts longer, or begins to spread into your shoulder, arm, neck, jaw or back Shortness of breath or increased pain with breathing Weakness, dizziness, or fainting Rapid heart beat Get prompt medical attention Call your doctor right away if any of the following occur: Cough with dark colored sputum (phlegm) or blood Fever of 100.4F(38C) or higher, or as directed by your health care provider Swelling, pain or redness in one leg You have been given the following additional information: Chest Pain, Uncertain Cause (Electronically signed by aTi Whitehead Dr. 11/26/2016 23:06)
--- NOTE | 2016-11-26 23:06 | ED MED RECONCILIATION SUMMARY ---
Patient: TAMIE IBANEZ Medication Reconciliation Report VisitID: [id number] [address] [place] [place] [address] 41y, F Registration Date/Time: 11/20/2016 Weight: 87.9 kg Height/Length: 62 in. BMI: 35.5 ALLERGIES: Compazine, Sulfa Drugs The patient's Home Medications are listed below: CONTINUE TAKING THE FOLLOWING MEDICATIONS: Chlorthalidone Oral (50 mg) 1 tablet, daily MetFORMIN HCl Oral 500 mg, 3x a day Tamiflu Oral, last dose 11/19/2016 The source(s) of the original Home Medication information: patient's family member patient The following Medications were given to the patient in the Emergency Department: Aspirin [PO] PO 325 mg, administered: 11/20/2016 3:32:00 PM The following Medications were prescribed to the patient: None.
== END 2016-11-20 18:24 | disposition home or self-care (01) ==
LOC: ED SRH 15:05
DX: R07.89 Other chest pain (principal)
CPT/HCPCS: 90004; 90100; 90197; 90469; 90616; 92760; 92761; 92762; 92763; 92764; 92765; 92766; 92767; 94001; 94060; 95059

== ENCOUNTER 2017-03-07 12:08 | Emergency (ER) | payer OTHER ==
--- NOTE | 2017-03-07 13:44 | ED CLINICAL REPORT ---
Clinical Report - Physicians/Mid Levels [facility] [address] [place] [address] 03/07/2017 12:09 Patient: TAMIE IBANEZ Time Seen: 12:25. Arrived- By private vehicle. Historian- patient. HISTORY OF PRESENT ILLNESS Chief Complaint: EARACHE. swelling behind ear. This started yesterday and is still present. Onset during sleep. Modifying factors- (Pressure on the area makes the sx worse.). Not relieved by anything. Location- left ear. The pain is described as moderate. No ear pain or drainage, hearing loss or nasal discharge or congestion. No sinus pressure, complaint of foreign body in the ear, ear trauma, recent barotrauma or tinnitus. No sore throat, toothache, jaw pain or facial pain. (Pt states the swelling is giving her a headache.). Similar symptoms previously: None. Recent medical care: Not recently seen/assessed. REVIEW OF SYSTEMS No fever, chills, cough, difficulty breathing or chest pain. No eye discomfort, nausea, vomiting, diarrhea or abdominal pain. No difficulty with urination, skin rash, enlarged lymph nodes or joint pain. Has not had decreased oral intake. Denies current . The patient has had a headache. All systems otherwise negative, except as recorded above. PAST HISTORY Problems: CVA - Cerebrovascular Accident. Hypokalemia. Pelvic Inflammatory Disease. Ovarian Cyst. Endometriosis. Hypertension. Spontaneous (Miscarriage). LNMP - Last Normal Menstrual Period. Polycystic Ovary Disease. Asthma. Additional Surgeries: Appendectomy. Ectopic R tube. Laparoscopy. Tympanostomy Tubes. Medications: Chlorthalidone Oral (Tablet 50 mg) 1 tablet, daily. MetFORMIN HCl Oral 500 mg, 3x a day. Allergies: Compazine. Sulfa Drugs. SOCIAL HISTORY Never smoker. Occasional alcohol use. History of drug use: marijuana. ADDITIONAL NOTES The nursing notes have been reviewed. PHYSICAL EXAM Vital Signs: 03/07/2017 12:20 BP: 161/100. HR: 77. RR: 16. O2 saturation: 100%. Temp: 97.6 F. Pain level now: 810. Have been reviewed. Appearance: Alert. No acute distress. (Pt appears moderately uncomfortable.). Eyes: Eyes normal inspection. Nose: Nose normal. Ear (right): Right ear normal. Ear (left): No erythema of the external canal, swelling of the external canal or material in the external canal. There is moderate tenderness and mild swelling of the mastoid. Does not have erythema of the mastoid. Left tympanic membrane normal. Neck: Neck supple. (PT has moderate tenderness along her L lateral neck soft tissue, extending inferiorly posterior to the pt's ear, with mild STS.). CVS: Normal heart rate and rhythm. Heart sounds normal. Respiratory: No respiratory distress. Breath sounds normal. Back: Normal inspection. Skin: Skin warm and dry. Normal skin color. No rash. Normal skin turgor. Extremities: Extremities exhibit normal ROM. No lower extremity edema. Neuro: No motor deficit. No sensory deficit. (PT is alert and grossly oriented.). LABS, X-RAYS, AND EKG CT Head: No bony abnormalities, no hemorrhage, no intracranial mass, no midline shift and no hydrocephalus. No atrophy. (Mild STS with mild stranding posterior-inferior to L ear. No mastoiditis.). Head CT performed without contrast. The study was independently viewed by me, interpreted by the radiologist and contemporaneously by me and discussed with the radiologist. Prior studies were not available for comparison. Pulse Oximetry: 03/07/2017 12:20 O2 saturation: 100%. (FIO2 - room air). Interpretation: normal. PROGRESS AND PROCEDURES Course of Care: PT was worked up with a CT of the head to evaluate for mastoiditis, and this was negative for mastoiditis, but positive for soft tissue stranding and mild edema. She was treated for cellulitis with doxycycline. Pt was treated for her headache with IV fluids, Phenergan, Toradol, and Dilaudid, with improvement. Patient counseled in person regarding the patient's stable condition, test results, diagnosis and need for follow-up. Concerns were addressed. Old medical records reviewed. Disposition: Discharged. Condition: stable and improved. CLINICAL IMPRESSION Cellulitis of the scalp (mild). INSTRUCTIONS Do not work tomorrow. Drink plenty of fluids. (Your CT scan does not show infection in your bones, and your brain looks good. You do not have signs of meningitis (infection of the fluid around the brain and spinal cord) at this time. You may have a mild infection in the deeper tissues overlying your scalp, and have been started on antibiotics for this today.). Warnings: SEDATIVE MEDICATION: You were given sedative medication during your visit. Do not drive or operate dangerous machinery for 6 hours. GENERAL WARNINGS: Return or contact your physician immediately if your condition worsens or changes unexpectedly, if not improving as expected, or if other problems arise. Your Current Medications: CONTINUE TAKING THE FOLLOWING MEDICATIONS: Chlorthalidone Oral : Tablet 50 mg, 1 tablet daily. MetFORMIN HCl Oral : 500 mg 3x a day. Prescription Medications: Hydrocodone/APAP 5mg / 325mg: take 1 orally every 6 hours as needed for pain. Dispense ten (10). No refill. Doxycycline 100 mg: Take 1 capsule orally every 12 hours for 7 days. No refill. Follow-up: Follow up with your doctor in five days if not better. Understanding of the discharge instructions verbalized by patient. (Electronically signed by Yady Odom MD 03/16/2017 19:38)
--- NOTE | 2017-03-07 13:44 | ED ORDER SUMMARY ---
..... Patient: TAMIE IBANEZ OrderSheet [facility] VisitID: [id number] [place] [address] 41y, F Registration Date/Time: 03/07/2017 ORDER SHEET Weight: 82.5 kg (stated) Allergies: Compazine, Sulfa Drugs GENERAL ORDERS: CT Head wo Cont Urgent (12:48 03/07/2017 Matt AZAR) (Ack 12:52 OHernandez) (14:06 SRoberts R.N.) MEDICATION ORDERS: Phenergan IV 12.5 mg (HIGH ALERT MEDICATION, NOW) (12:49 03/07/2017 Matt AZAR) (Ack 13:06 JBoardley R.N.) (13:28 JBoardley R.N.) Doxycycline Monohydrate PO 100 mg (NOW) (13:38 03/07/2017 Matt AZAR) (Ack 13:53 SRoberts R.N.) (14:06 SRoberts R.N.) IV FLUIDS: IV NS : initial bolus 1000 mL (1000 mL/hr), then none - (NOW) (12:48 03/07/2017 Matt AZAR) (Ack 13:06 JBoardley R.N.) (13:28 JBoardley R.N.) Toradol IV 30 mg (NOW) (12:48 03/07/2017 Matt AZAR) (Ack 13:06 JBoardley R.N.) (13:28 JBoardley R.N.) Dilaudid IV 1 mg (HIGH ALERT MEDICATION, NOW) (12:49 03/07/2017 Matt AZAR) (Ack 13:06 JBoardley R.N.) (13:29 JBoardley R.N.) ORDER SHEET NOTES: [Electronically signed by Sudha Mckoy R.N. (14:26 03/07/2017)] [Electronically signed by Yady Odom MD (19:38 03/16/2017)] [Electronically locked/signed by Sudha Mckoy R.N. (14:26 03/07/2017)]
--- NOTE | 2017-03-07 13:44 | ED NURSING NOTES ---
Clinical Report - Nurses Merged With [facility] [address] [place] [address] 03/07/2017 12:09 Patient: TAMIE IBANEZ TRIAGE Triage time 12:20. Acuity: LEVEL 3. Chief Complaint: HEADACHE, DIZZINESS, EAR PAIN, NAUSEA and NECK PAIN (Started as a headache, behind the lt ear. Dull pressure, aching pain gos down neck). Alert. No acute distress. SEPSIS SCREEN: Sepsis Screen: negative. Negative (no infection suspected/documented). VICKI COMA SCORE: Vicki Coma Scale: 15- eyes open spontaneously (4); best verbal response- oriented x 4 (5); best motor response- obeys commands (6). --12:29 Sudha Mckoy R.N. 12:20 03/07/17. BP: 161/100 taken on the left arm, while lying. HR: 77. RR: 16. O2 saturation: 100%. Temp: 97.6 F. Pain level now: 04/12. --12:29 Sudha Mckoy R.N. Weight: 82.5 kg stated. Height/Length: 62 inches Per Patient. BMI: 33.3. --12:27 Sudha Mckoy R.N. Medications Chlorthalidone Oral (Tablet 50 mg) 1 tablet, daily. MetFORMIN HCl Oral 500 mg, 3x a day. --12:22 Sudha Mckoy R.N. Medication/allergy information source: the patient. --12:29 Sudha Mckoy R.N. Allergies Compazine. Sulfa Drugs. --12:22 Sudha Mckoy R.N. History Arrived by private vehicle. Historian: patient and family. Primary physician (mercedez). ( dropped off). Onset. (3 days). 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 (CBD edibles.). PAST MEDICAL HX: Immunizations: status is unknown. Last normal menstrual period- irregular January 15. SOCIAL HX: Never smoker. Occasional alcohol use. History of drug use: marijuana. Recently used drugs yesterday. --12:29 Sudha Mckoy R.N. PROBLEMS: Atypical Chest Pain. CVA - Cerebrovascular Accident. Hypokalemia. Pelvic Inflammatory Disease. Abdominal Pain. UTI - Urinary Tract Infection. Ovarian Cyst. Endometriosis. Hypertension. Spontaneous (Miscarriage). Polycystic Ovary Disease. Asthma. --12: Sudha Mckoy R.N. Ectopic [RuleOut]. --12:22 Sudah Mckoy R.N. ADDITIONAL SURGERIES: Appendectomy. Ectopic pred, rt side. . Laparoscopy. Previous Abdominal Surgery. Tympanostomy Tubes. --12:22 Sudha Mckoy R.N. Interventions ID band on patient. To room. --12:29 Sudha Mckoy R.N. PHYSICAL ASSESSMENT Ambulatory to room. Patient gowned. GENERAL / NEURO / PSYCH: Alert. Oriented X 4. Appears in no acute distress. HEENT: Mucous membranes are pink. RESPIRATORY: Respirations not labored. CVS: Capillary refill less than 2 seconds. GI / : Abdomen nontender. SKIN: Skin intact. Skin is warm and dry. Normal skin turgor. --12:29 Sudha Mckoy R.N. NURSING PROGRESS NOTES Patient gowned. Head of bed elevated. Two patient identifiers checked. Call light placed in reach. Side rails up x 2. Bed placed in lowest position. Brakes of bed on. Patient ready for evaluation. --12:30 Sudha Mckoy R.N. 13:13 03/07/2017 Site #1 started via IV in the right antecubital space with an 20g angiocath, with aseptic technique and good blood return; one attempt. Blood drawn: rainbow set. Labeled in the presence of the patient and sent to the lab. Saline lock flushed with 10 mL saline. --13:28 Carlos Kevin R.N. 13:28 03/07/2017 Started bag #1 1000 mL IV Fluids IV NS (Saline); at 1000 mL/hr over 1 hour(s) via site #1. Allergies verified and confirmed 5 rights. IV patency established. IV site checked: no pain, redness, or swelling. IV flushed thoroughly pre- and post-medication administration. Completed per protocol. --13:28 Carlos Kevin R.N. 13:28 03/07/2017 Toradol IVP 30 mg given over 2 minute(s) via site #1. Allergies verified and confirmed 5 rights. IV patency established. IV site checked: no pain, redness, or swelling. IV flushed thoroughly pre- and post-medication administration. IVP given by RN. --13:28 Carlos Kevin R.N. 13:28 03/07/2017 PHENERGAN (Promethazine HCl) IVP 12.5 mg given over 2 minute(s) via site #1. Allergies verified and confirmed 5 rights. IV patency established. IV site checked: no pain, redness, or swelling. IV flushed thoroughly pre- and post-medication administration. IVP given by RN. --13:28 Carlos Kevin R.N. 13:28 03/07/2017 Dilaudid (HYDROmorphone HCl PF) IVP 1 mg given over 2 minute(s) via site #1. Allergies verified, confirmed 5 rights and sedative warning given to the patient. IV patency established. IV site checked: no pain, redness, or swelling. IV flushed thoroughly pre- and post-medication administration. IVP given by RN. --13:29 Carlos Kevin R.N. 13:51 03/07/2017 DOXYCYCLINE MONOHYDRATE PO 100 mg given. Allergies verified and confirmed 5 rights. --14:06 Sudha Mckoy R.N. 14:00 03/07/2017 IV Fluids IV NS Discontinued: bag #1 STOPPED. Total amount infused: 1000 mL. IV patency established. IV site checked: no pain, redness, or swelling. IV flushed thoroughly. --14:10 Sudha Mckoy R.N. 14:02 03/07/2017 Site #1 removed upon discharge. Catheter intact. Bandaid applied. --14:07 Sudha Mckoy R.N. DISPOSITION / DISCHARGE 14:05. Condition at departure: improved. No learning barriers present. Discharge instructions provided and reviewed with the patient. Reviewed medication(s) side effects, precautions, dosing and course information. Prescription(s) given to the patient. Patient verbalized understanding. Written instructions provided in Kyrgyz. The patient was discharged home and accompanied by spouse. She left the Emergency Department ambulatory and via private vehicle. Spouse driving. Medication list reviewed and validated. --14:26 Sudha Mckoy R.N. 14:12 03/07/17. BP: 146/86. HR: 78. RR: 18. O2 saturation: 97%. Temp: deferred. Pain level now: 10/13. --14:26 Sudha Mckoy R.N. Locked/Released at 03/07/2017 14:26 by Sudha Mckoy R.N.
--- NOTE | 2017-03-07 13:44 | ED ORDER SUMMARY ---
..... Patient: TAMIE IBANEZ OrderSheet [facility] VisitID: [id number] [place] [address] 41y, F Registration Date/Time: 03/07/2017 ORDER SHEET Weight: 82.5 kg (stated) Allergies: Compazine, Sulfa Drugs GENERAL ORDERS: CT Head wo Cont Urgent (12:48 03/07/2017 Matt AZAR) (Ack 12:52 OHernandez) (14:06 SRoberts R.N.) MEDICATION ORDERS: Phenergan IV 12.5 mg (HIGH ALERT MEDICATION, NOW) (12:49 03/07/2017 Matt AZAR) (Ack 13:06 JBoardley R.N.) (13:28 JBoardley R.N.) Doxycycline Monohydrate PO 100 mg (NOW) (13:38 03/07/2017 Matt AZAR) (Ack 13:53 SRoberts R.N.) (14:06 SRoberts R.N.) IV FLUIDS: IV NS : initial bolus 1000 mL (1000 mL/hr), then none - (NOW) (12:48 03/07/2017 Matt AZAR) (Ack 13:06 JBoardley R.N.) (13:28 JBoardley R.N.) Toradol IV 30 mg (NOW) (12:48 03/07/2017 Matt AZAR) (Ack 13:06 JBoardley R.N.) (13:28 JBoardley R.N.) Dilaudid IV 1 mg (HIGH ALERT MEDICATION, NOW) (12:49 03/07/2017 Matt AZAR) (Ack 13:06 JBoardley R.N.) (13:29 JBoardley R.N.) ORDER SHEET NOTES: [Electronically signed by Sudha Mckoy R.N. (14:26 03/07/2017)] [Electronically signed by Yady Odom MD (19:38 03/16/2017)] [Electronically locked/signed by Sudha Mckoy R.N. (14:26 03/07/2017)]
--- NOTE | 2017-03-07 13:46 | DIAGNOSTIC IMAGING REPORT ---
PROCEDURE: CT HEAD WITHOUT CONTRAST INDICATION: HEADACHE, PAIN BEHIND L EAR TECHNIQUE: Noncontrast axial images with sagittal and coronal reformations. COMPARISON: Head CT 11/20/2016. FINDINGS: Sulci, ventricular system, and brain parenchyma are normal. No evidence of acute intracranial process. Mild left post auricular soft tissue swelling and infiltration of the subcutaneous fat which may represent cellulitis. Resolved right maxillary sinusitis. Visualized mastoids and sinuses are clear. No significant interval change. IMPRESSION: 1. No acute intracranial abnormality 2. Mild left post auricular soft tissue swelling and inflammatory changes which may represent cellulitis. No evidence of mass or abscess. 3. Findings discussed with Dr. Odom at 01:20 p.m., [place] Standard Time.
--- NOTE | 2017-03-16 19:39 | ED MAR SUMMARY ---
..... Medication Administration Record [facility] [address] [place] [address] Patient: TAMIE IBANEZ Visit ID: [id number] 41y, F Weight: 82.5 kg Height/Length: 62 in BMI: 33.3 ALLERGIES: Compazine, Sulfa Drugs Start 13:28 03/07/2017 Carlos Kevin R.N., Stop 14:00 03/07/2017 Sudha Mckoy R.N. Medication Administered: IV NS (SALINE), Dose: IV Fluids over 1 hour(s), Rate: 1000 mL/hr, Dispensed: 1000 mL bag, Site: #1 right AC. Medication Ordered: IV NS : initial bolus 1000 mL (1000 mL/hr), then none - (NOW). Given 13:03/07/2017 Carlos Kevin R.N. Medication Administered: TORADOL [IVP], Dose: 30 mg IVP over 2 minute(s), Site: #1 right AC. Medication Ordered: Toradol IV 30 mg (NOW). Given 13:03/07/2017 Carlos Kevin R.N. Medication Administered: PHENERGAN [IVP] (PROMETHAZINE HCL), Dose: 12.5 mg IVP over 2 minute(s), Site: #1 right AC. Medication Ordered: Phenergan IV 12.5 mg (HIGH ALERT MEDICATION, NOW). Given 13:03/07/2017 Carlos Kevin R.N. Medication Administered: DILAUDID [IVP] (HYDROMORPHONE HCL PF), Dose: 1 mg IVP over 2 minute(s), Site: #1 right AC. Medication Ordered: Dilaudid IV 1 mg (HIGH ALERT MEDICATION, NOW). Given 13:03/07/2017 Sudha Mckoy R.N. Medication Administered: DOXYCYCLINE MONOHYDRATE [PO], Dose: 100 mg PO. Medication Ordered: Doxycycline Monohydrate PO 100 mg (NOW).
--- NOTE | 2017-03-16 19:39 | ED DISCHARGE INSTRUCTIONS ---
Patient: TAMIE IBANEZ General Instructions [facility] VisitID: [id number] [place] [address] 41y, F Registration Date/Time: 03/07/2017 Cellulitis of the scalp (mild). INSTRUCTIONS Do not work tomorrow. Drink plenty of fluids. (Your CT scan does not show infection in your bones, and your brain looks good. You do not have signs of meningitis (infection of the fluid around the brain and spinal cord) at this time. You may have a mild infection in the deeper tissues overlying your scalp, and have been started on antibiotics for this today.). Warnings: SEDATIVE MEDICATION: You were given sedative medication during your visit. Do not drive or operate dangerous machinery for 6 hours. GENERAL WARNINGS: Return or contact your physician immediately if your condition worsens or changes unexpectedly, if not improving as expected, or if other problems arise. Your Current Medications: CONTINUE TAKING THE FOLLOWING MEDICATIONS: Chlorthalidone Oral : Tablet 50 mg, 1 tablet daily. MetFORMIN HCl Oral : 500 mg 3x a day. Prescription Medications: Hydrocodone/APAP 5mg / 325mg: take 1 orally every 6 hours as needed for pain. Dispense ten (10). No refill. Doxycycline 100 mg: Take 1 capsule orally every 12 hours for 7 days. No refill. Follow-up: Follow up with your doctor in five days if not better. Understanding of the discharge instructions verbalized by patient. ADDITIONAL INFORMATION Cellulitis You have an infection of the skin known as cellulitis. This usually starts with a scrape, cut, insect bite, blister or other opening in the skin which becomes infected. This is a serious condition. It must be watched closely to be sure the infection is not spreading. With antibiotic treatment, the size of the red area will gradually shrink in size until the skin returns to normal. This will take 7-10 days. The red area should never increase in size once the antibiotic medicine has been started. Occasionally, an infection will be resistant to one antibiotic and another one will have to be used. Home Care: 1) Limit the use of the affected part, since excess movement can cause the infection to spread. 2) If the infection is on your leg, walk as little as possible during the first few days of the treatment. Keep your leg elevated while sitting. This will reduce swelling. 3) Take all of the antibiotic medicine exactly as directed until it is gone. Be careful not to miss any doses, especially during the first seven days. Follow Up with your doctor or this facility as directed. Check the infected area daily for the warning signs listed below. Get Prompt Medical Attention if any of the following occur: -- Spreading area of redness -- Increasing swelling or pain -- Appearance of pus or drainage -- Fever over 100.4 F (38.0 C) oral, or over 101.4 F (38.6 C) rectal, after two days on antibiotics You have been given the following additional information: Cellulitis Do not work tomorrow. (Electronically signed by Yady Odom MD 03/16/2017 19:38)
--- NOTE | 2017-03-16 19:39 | ED MED RECONCILIATION SUMMARY ---
Patient: TAMIE IBANEZ Medication Reconciliation Report [facility] VisitID: [id number] [address] [place] [address] 41y, F Registration Date/Time: 03/07/2017 Weight: 82.5 kg Height/Length: 62 in. BMI: 33.3 ALLERGIES: Compazine, Sulfa Drugs The patient's Home Medications are listed below: CONTINUE TAKING THE FOLLOWING MEDICATIONS: Chlorthalidone Oral (50 mg) 1 tablet, daily MetFORMIN HCl Oral 500 mg, 3x a day The source(s) of the original Home Medication information: patient The following Medications were given to the patient in the Emergency Department: IV NS IV Fluids bolus 0, then 1000 mL/hr, administered: 03/07/2017 1:28:00 PM Toradol [IVP] IVP 30 mg, administered: 03/07/2017 1:28:00 PM PHENERGAN [IVP] IVP 12.5 mg, administered: 03/07/2017 1:28:00 PM Dilaudid [IVP] IVP 1 mg, administered: 03/07/2017 1:28:00 PM DOXYCYCLINE MONOHYDRATE [PO] PO 100 mg, administered: 03/07/2017 1:51:00 PM The following Medications were prescribed to the patient: Hydrocodone/APAP 5mg / 325mg: take 1 orally every 6 hours as needed for pain. Dispense ten (10). No refill. -- Yady Odom MD Doxycycline 100 mg: Take 1 capsule orally every 12 hours for 7 days. No refill. -- Yady Odom MD
--- NOTE | 2017-03-16 19:39 | ED MED RECONCILIATION SUMMARY ---
Patient: TAMIE IBANEZ Medication Reconciliation Report [facility] VisitID: [id number] [address] [place] [address] 41y, F Registration Date/Time: 03/07/2017 Weight: 82.5 kg Height/Length: 62 in. BMI: 33.3 ALLERGIES: Compazine, Sulfa Drugs The patient's Home Medications are listed below: CONTINUE TAKING THE FOLLOWING MEDICATIONS: Chlorthalidone Oral (50 mg) 1 tablet, daily MetFORMIN HCl Oral 500 mg, 3x a day The source(s) of the original Home Medication information: patient The following Medications were given to the patient in the Emergency Department: IV NS IV Fluids bolus 0, then 1000 mL/hr, administered: 03/07/2017 1:28:00 PM Toradol [IVP] IVP 30 mg, administered: 03/07/2017 1:28:00 PM PHENERGAN [IVP] IVP 12.5 mg, administered: 03/07/2017 1:28:00 PM Dilaudid [IVP] IVP 1 mg, administered: 03/07/2017 1:28:00 PM DOXYCYCLINE MONOHYDRATE [PO] PO 100 mg, administered: 03/07/2017 1:51:00 PM The following Medications were prescribed to the patient: Hydrocodone/APAP 5mg / 325mg: take 1 orally every 6 hours as needed for pain. Dispense ten (10). No refill. -- Yady Odom MD Doxycycline 100 mg: Take 1 capsule orally every 12 hours for 7 days. No refill. -- Yady Odom MD
--- NOTE | 2017-03-16 19:39 | ED MAR SUMMARY ---
..... Medication Administration Record [facility] [address] [place] [address] Patient: TAMIE IBANEZ Visit ID: [id number] 41y, F Weight: 82.5 kg Height/Length: 62 in BMI: 33.3 ALLERGIES: Compazine, Sulfa Drugs Start 13:28 03/07/2017 Carlos Kevin R.N., Stop 14:00 03/07/2017 Sudha Mckoy R.N. Medication Administered: IV NS (SALINE), Dose: IV Fluids over 1 hour(s), Rate: 1000 mL/hr, Dispensed: 1000 mL bag, Site: #1 right AC. Medication Ordered: IV NS : initial bolus 1000 mL (1000 mL/hr), then none - (NOW). Given 13:03/07/2017 Carlos Kevin R.N. Medication Administered: TORADOL [IVP], Dose: 30 mg IVP over 2 minute(s), Site: #1 right AC. Medication Ordered: Toradol IV 30 mg (NOW). Given 13:03/07/2017 Carlos Kevin R.N. Medication Administered: PHENERGAN [IVP] (PROMETHAZINE HCL), Dose: 12.5 mg IVP over 2 minute(s), Site: #1 right AC. Medication Ordered: Phenergan IV 12.5 mg (HIGH ALERT MEDICATION, NOW). Given 13:03/07/2017 Carlos Kevin R.N. Medication Administered: DILAUDID [IVP] (HYDROMORPHONE HCL PF), Dose: 1 mg IVP over 2 minute(s), Site: #1 right AC. Medication Ordered: Dilaudid IV 1 mg (HIGH ALERT MEDICATION, NOW). Given 13:03/07/2017 Sudha Mckoy R.N. Medication Administered: DOXYCYCLINE MONOHYDRATE [PO], Dose: 100 mg PO. Medication Ordered: Doxycycline Monohydrate PO 100 mg (NOW).
== END 2017-03-07 14:05 | disposition home or self-care (01) ==
LOC: ED SRH 12:08
DX: L03.811 Cellulitis of head [any part, except face] (principal); I10 Essential (primary) hypertension; F12.10 Cannabis abuse, uncomplicated

== ENCOUNTER 2017-03-09 09:04 | Emergency (ER) | payer OTHER ==
--- NOTE | 2017-03-09 12:19 | ED NURSING NOTES ---
Clinical Report - Nurses [facility] [address] [place] [address] 03/09/2017 9:06 Patient: TAMIE IBANEZ TRIAGE Triage time 09:Mar 09 2017. Chief Complaint: HEADACHE and (pt was seen here on the 5th for an "infection on my head under my skin" pt given an atbx for tx and now unable to keep food down, continues to have pain). Alert. No acute distress. --09:16 Sulma Bahena R.N. 09:11 03/09/17. BP: 165/94. HR: 73. RR: 17. O2 saturation: 99%. Temp: 97.9 F. Pain level now: 04/12. --09:16 Sulma Bahena R.N. Weight: 82.5 kg stated. Height/Length: 60 inches Per Patient. BMI: 35.5. --09:13 Sulma Bahena R.N. Medications Chlorthalidone Oral (Tablet 50 mg) 1 tablet, daily. MetFORMIN HCl Oral 500 mg, 3x a day. --09:12 Sulma Bahena R.N. Allergies Compazine. Sulfa Drugs. --09:12 Sulma Bahena R.N. Medication/allergy information source: the patient. --09:16 Sulma Bahena R.N. History Arrived by private vehicle. Historian: patient. This started 1 days. She has had nausea and vomiting. Treatment MATERIALS HANDLING EQUIPMENT OPERATOR: None. PAST MEDICAL HX: Immunizations: up-to-date. Last normal menstrual period- January 2017. SOCIAL HX: Never smoker. Alcohol use; consumes beer occasionally. History of drug use: marijuana. No recent travel. No infectious disease exposure. No known contact with a sick individual. ABUSE ASSESSMENT: No report of abuse. SELF HARM ASSESSMENT: A self harm assessment was performed. The patient answered "no" to the question "Do you have thoughts of harming or killing yourself?". FALL RISK ASSESSMENT: Fall risk assessment completed. No fall risk identified. NUTRITIONAL RISK ASSESSMENT: The nutritional risk assessment revealed no deficiencies. FUNCTIONAL ASSESSMENT: Functional assessment: no impairments noted. LEARNING NEEDS ASSESSMENT: The learning needs assessment revealed no barriers. SKIN INTEGRITY ASSESSMENT: Skin integrity risk assessment completed. No skin integrity risk identified. --09:16 Sulma Bahena R.N. PROBLEMS: Cellulitis. Atypical Chest Pain. CVA - Cerebrovascular Accident. Hypokalemia. Pelvic Inflammatory Disease. Abdominal Pain. UTI - Urinary Tract Infection. Ovarian Cyst. Endometriosis. Hypertension. Spontaneous (Miscarriage). LNMP - Last Normal Menstrual Period. Polycystic Ovary Disease. Asthma. --09:15 Sulma Bahena R.N. Ectopic [RuleOut]. --09:15 Sulma Bahena R.N. ADDITIONAL SURGERIES: Appendectomy. Ectopic pred, rt side. . Laparoscopy. Previous Abdominal Surgery. Tympanostomy Tubes. --09:15 Sulma Bahena R.N. Interventions ID band on patient. --09:16 Sulma Bahena R.N. PHYSICAL ASSESSMENT Ambulatory to room. Patient gowned. GENERAL / NEURO / PSYCH: Alert. Oriented X 4. Appears in no acute distress. Speech within normal limits. HEENT: Pupils equal, round and reactive to light. RESPIRATORY: Respirations not labored. Breath sounds within normal limits. CVS: Capillary refill less than 2 seconds. GI / : Abdomen soft and nontender. SKIN: Skin is warm and dry. --09:16 Sulma Bahena R.N. NURSING PROGRESS NOTES Patient identifiers checked. Call light placed in reach. Side rails up. Bed placed in lowest position. Brakes of bed on. Patient ready for evaluation- chart flagged. Patient waiting for evaluation. --09:16 Sulma Bahena R.N. 09:47 03/09/2017 Site #1 started via IV in the left hand with an 20g angiocath; one attempt. Saline lock flushed with 10 mL saline. --09:57 Sulma Bahena R.N. 09:52 03/09/2017 Started bag #1 1000 mL IV Fluids IV NS (Saline); at 1000 mL/hr via site #1 via dial-a-flow. Allergies verified and confirmed 5 rights. IV patency established. IV site checked: no pain, redness, or swelling. IV flushed thoroughly pre- and post-medication administration. --09:57 Sulma Bahena R.N. 09:52 03/09/2017 Toradol IVP 30 mg given. via site #1. Allergies verified and confirmed 5 rights. IV patency established. IV site checked: no pain, redness, or swelling. IV flushed thoroughly pre- and post-medication administration. IVP given by RN. --09:57 Sulma Bahena R.N. 09:52 03/09/2017 Benadryl (DiphenhydrAMINE HCl) IVP 25 mg given. via site #1. Allergies verified, confirmed 5 rights and sedative warning given. IV patency established. IV site checked: no pain, redness, or swelling. IV flushed thoroughly pre- and post-medication administration. IVP given by RN. --09:57 Sulma Bahena R.N. 09:53 03/09/2017 Reglan (Metoclopramide HCl) IVP 10 mg given. via site #1. Allergies verified and confirmed 5 rights. IV patency established. IV site checked: no pain, redness, or swelling. IV flushed thoroughly pre- and post-medication administration. IVP given by RN. --09:58 Sulma Bahena R.N. ( pt aware of need for UA-). --10:37 Sulma Bahena R.N. Patient ID band checked for patient name and birthdate: patient confirmed. Instructions provided to collect clean catch urine and patient verbalized understanding urine collected with return of yellow-colored clear urine; odor is normal; sample sent to lab for urinalysis and culture. Specimen labeled in the presence of the patient. --11:19 Josue Leon, REBECA Larose1 ( pt up to bathroom independently, no emesis since presentation). --11:22 Sulma Bahena R.N. Patient identifiers checked. Call light placed in reach. Side rails up. Bed placed in lowest position. Brakes of bed on. --11:43 Sulma Bahena R.N. 11:43 03/09/17. BP: 144/63. HR: 71. RR: 15. O2 saturation: 99%. --11:43 Sulma Bahena R.N. DISPOSITION / DISCHARGE 12:49 03/09/2017 Site #1 removed upon discharge. Bandaid applied. --12:59 Sulma Baehna R.N. Condition at departure: improved. No learning barriers present. Discharge instructions provided and reviewed with the patient. Reviewed medication(s) side effects, dosing and course information. Prescription(s) given to the patient (pt to stop doxy and start clinda per MD). Patient verbalized understanding. Written instructions provided in Guinean. The patient was discharged by the physician. She was discharged home. She left the Emergency Department ambulatory and via private vehicle. Patient driving. --12:59 Sulma Bahena R.N. 12:57 03/09/17. BP: 142/72. HR: 68. RR: 15. O2 saturation: 99%. Temp: deferred. Pain level now: 12/11. --12:59 Sulma Bahena R.N. Locked/Released at 03/09/2017 13:28 by Sulma Bahena R.N.
--- NOTE | 2017-03-09 12:19 | ED CLINICAL REPORT ---
Clinical Report - Physicians/Mid Levels [facility] [address] [place] [address] 03/09/2017 9:06 Patient: TAMIE IBANEZ Time Seen: 920; initial patient contact. Arrived- By private vehicle. Historian- patient. HISTORY OF PRESENT ILLNESS Chief Complaint: VOMITING. This started today and is still present. It was abrupt in onset and has been constant but is not gone now. No recent travel. She has had nausea and vomiting. No constipation or flank pain. Has recently been on antibiotics for skin problems but not recently been camping. The illness is described as moderate. (states she was diagnosed with a infection of her scalp. states the vomiting started after the abx were started. states she also had a headache on the left occipital area which has been constant.). Similar symptoms previously: None. Recent medical care: Not recently seen/assessed. REVIEW OF SYSTEMS No fever, chest pain, difficulty breathing or blurred vision. All systems otherwise negative, except as recorded above. PAST HISTORY See nurses notes. Medications: Chlorthalidone Oral (Tablet 50 mg) 1 tablet, daily. MetFORMIN HCl Oral 500 mg, 3x a day. Allergies: Compazine. Sulfa Drugs. SOCIAL HISTORY Never smoker. No alcohol use or drug use. No recent travel. Is a local resident. ADDITIONAL NOTES The nursing notes have been reviewed. PHYSICAL EXAM Vital Signs: 03/09/2017 09:11 BP: 165/94. HR: 73. RR: 17. O2 saturation: 99%. Temp: 97.9 F. Pain level now: 8/10. Blood pressure normal. Oxygen saturation normal. Appearance: Alert. Oriented X3. No acute distress. Eyes: Pupils equal, round and reactive to light. Eyes normal inspection. (No papilledema. Normal appearing retinal vasculature.). ENT: Ears normal. Nose normal. Pharynx normal. Neck: Normal inspection. Neck supple. CVS: Normal heart rate and rhythm. Heart sounds normal. Pulses normal. Respiratory: No respiratory distress. Breath sounds normal. No rales, rhonchi or wheezes. Abdomen: Soft and nontender. Bowel sounds normal. Skin: Skin warm and dry. Normal skin color. No rash. Normal skin turgor. Extremities: Extremities exhibit normal ROM. No lower extremity edema. Neuro: Oriented X 3. No motor deficit. No sensory deficit. LABS, X-RAYS, AND EKG Laboratory Tests: UA-Culture if indicated: (MAICO: 03/09/2017 11:15) ( [facility] 03/09/2017 11:32) Final results Test Result Flag Units (Reference) URINE COLOR STRAW URINE APPEARANCE CLEAR URINE GLUCOSE NEGATIVE (NEGATIVE) URINE BILIRUBIN NEGATIVE (NEGATIVE) URINE KETONE NEGATIVE (NEGATIVE) URINE SPECIFIC GRAVITY <= 1.005 L (1.010-1.030) URINE PH 6.0 (5.0-8.0) URINE PROTEIN NEGATIVE (NEGATIVE) URINE UROBILINOGEN 0.2 EU/dL (0.2-1.0) URINE NITRITE NEGATIVE (NEGATIVE) URINE BLOOD NEGATIVE (NEGATIVE) URINE LEUK ESTERASE NEGATIVE (NEGATIVE) URINE RBC NONE SEEN rbc/hpf (0-1) URINE WBC NONE SEEN wbc/hpf (0-1) URINE EPITHELIAL CELLS NONE SEEN EPI/hpf (0-5) URINE BACTERIA NONE SEEN (NONE SEEN) URINE COMMENT CULT NOT INDICATED URINE CULTURES ARE SET-UP BASED ON THE FOLLOWING CRITERIA:POSITIVE NITRITEPOSITIVE LEUKOCYTE ESTERASEGREATER THAN 10 WHITE BLOOD CELLSMODERATE (2+) OR GREATER BACTERIA CBC w Diff: (MAICO: 03/09/2017 10:02) ( [facility] 03/09/2017 10:23) Final results Test Result Flag Units (Reference) WHITE BLOOD COUNT 8.5 K/uL (4.5-11.5) RED BLOOD COUNT 4.90 M/uL (4.00-5.20) HEMOGLOBIN 13.5 gm/dL (12.0-16.0) HEMATOCRIT 40.0 % (36.0-46.0) MEAN CELL VOLUME 82 fL (80-100) MEAN CORPUSCULAR HGB 28 pg (26-34) MEAN CORPUSCULAR HGB CONC 34 g/dL (31-37) RED CELL DISTRIBUTION WIDTH 14.0 % (11.6-14.8) PLATELET COUNT 232 K/uL (150-400) NEUTROPHIL % 75.6 H % (50-75) LYMPH % 18.9 L % (25-40) MONO % 3.7 % (3-14) EOSINOPHIL % 1.4 % (0-4) BASOPHIL % 0.4 % (0-2) PT with INR: (MAICO: 03/09/2017 10:02) ( [facility] 03/09/2017 10:47) Final results Test Result Flag Units (Reference) INR 1.0 (0.8-1.2) Low Intensity Therapy: INR 1.5-2.0 PT range 18.5-23.1Mod.Intensity Therapy: INR 2.0-3.0 PT range 23.1-31.5High Intensity Therapy: INR 2.5-3.5 PT range 27.4-35.5High Intensity Therapy 2: INR 3.0-4.0 PT range 31.5-39.3 CMP: (MAICO: 03/09/2017 10:02) ( [facility] 03/09/2017 10:28) Final results Test Result Flag Units (Reference) GLUCOSE 110 mg/dL (70-110) BUN 12 mg/dL (7-18) CREATININE 0.9 mg/dL (0.6-1.3) Estimated GFR >60 mL/min Estimated GFR- >60 mL/min Note: Persistent reduction over 3 months in eGFR<60 mL/min/1.73 m2 defines CKD. Patients with eGFR values>=60 mL/min/1.73 m2 may also have CKD if evidence ofpersistent proteinuria. Additional information may be foundat www.kidney.org. SODIUM 139 mmol/L (136-145) POTASSIUM 4.0 mmol/L (3.5-5.1) CHLORIDE 107 mmol/L (98-107) CARBON DIOXIDE 25 mmol/L (21-32) CALCIUM 8.0 L mg/dL (8.5-10.1) TOTAL PROTEIN 6.9 g/dL (6.4-8.2) ALBUMIN 3.2 L g/dL (3.3-5.0) BILIRUBIN, TOTAL 0.4 mg/dL (0.0-1.0) ALKALINE PHOSPHATASE 73 U/L (46-116) AST (SGOT) 14 L U/L (15-37) ALT (SGPT) 17 U/L (12-78) LIPASE 96 U/L (73-393) . PROGRESS AND PROCEDURES Course of Care: the patient is a 41-year-old female presenting for evaluation of nausea and vomiting after starting antibiotic for skin infection of the scalp. Infection seems to be significantly improved at bedside. Patient will be given medications for the nausea and headache. No signs of meningitis at this time. Patient is agreeable to the treatment plan. Workup was workable for the findings above. Patient will be changed on her antibiotic. Had a discussion with the patient in regards to her workup. Emergency department including diagnosis, home care, follow-up, and return precautions. All questions have been answered. The patient expressed understanding of these instructions and was agreeable to them. Disposition: Discharged. Condition: good. CLINICAL IMPRESSION Vomiting with nausea. 03/09/2017 11:43 BP: 144/63. HR: 71. RR: 15. O2 saturation: 99%. Hypertensive. Oxygen saturation normal. Essential hypertension. INSTRUCTIONS (Please stop taking the doxycycline). Warnings: GENERAL WARNINGS: Return or contact your physician immediately if your condition worsens or changes unexpectedly, if not improving as expected, or if other problems arise. SPECIFICALLY, return if you develop pain, fever, vomiting, the inability to keep fluids down, blood in vomitus, blood in diarrhea, fainting or lightheadedness. Prescription Medications: Clindamycin 150 mg: take 3 capsules orally every 8 hours for 7 days. No refill. (Disp 63 caps) Follow-up: Return to the emergency department as needed. Follow up with your doctor in two days. Reason for referral: recheck today's concerns. Summary of care provided to patient via paper. Screening today revealed the patient's blood pressure to be in the hypertensive range. The patient should follow up with a primary care provider for blood pressure management. Understanding of the discharge instructions verbalized by patient. (Electronically signed by Tia Whitehead Dr. 03/11/2017 7:23)
--- NOTE | 2017-03-09 12:19 | ED CLINICAL REPORT ---
Clinical Report - Physicians/Mid Levels [facility] [address] [place] [address] 03/09/2017 9:06 Patient: TAMIE IBANEZ Time Seen: 920; initial patient contact. Arrived- By private vehicle. Historian- patient. HISTORY OF PRESENT ILLNESS Chief Complaint: VOMITING. This started today and is still present. It was abrupt in onset and has been constant but is not gone now. No recent travel. She has had nausea and vomiting. No constipation or flank pain. Has recently been on antibiotics for skin problems but not recently been camping. The illness is described as moderate. (states she was diagnosed with a infection of her scalp. states the vomiting started after the abx were started. states she also had a headache on the left occipital area which has been constant.). Similar symptoms previously: None. Recent medical care: Not recently seen/assessed. REVIEW OF SYSTEMS No fever, chest pain, difficulty breathing or blurred vision. All systems otherwise negative, except as recorded above. PAST HISTORY See nurses notes. Medications: Chlorthalidone Oral (Tablet 50 mg) 1 tablet, daily. MetFORMIN HCl Oral 500 mg, 3x a day. Allergies: Compazine. Sulfa Drugs. SOCIAL HISTORY Never smoker. No alcohol use or drug use. No recent travel. Is a local resident. ADDITIONAL NOTES The nursing notes have been reviewed. PHYSICAL EXAM Vital Signs: 03/09/2017 09:11 BP: 165/94. HR: 73. RR: 17. O2 saturation: 99%. Temp: 97.9 F. Pain level now: 8/10. Blood pressure normal. Oxygen saturation normal. Appearance: Alert. Oriented X3. No acute distress. Eyes: Pupils equal, round and reactive to light. Eyes normal inspection. (No papilledema. Normal appearing retinal vasculature.). ENT: Ears normal. Nose normal. Pharynx normal. Neck: Normal inspection. Neck supple. CVS: Normal heart rate and rhythm. Heart sounds normal. Pulses normal. Respiratory: No respiratory distress. Breath sounds normal. No rales, rhonchi or wheezes. Abdomen: Soft and nontender. Bowel sounds normal. Skin: Skin warm and dry. Normal skin color. No rash. Normal skin turgor. Extremities: Extremities exhibit normal ROM. No lower extremity edema. Neuro: Oriented X 3. No motor deficit. No sensory deficit. LABS, X-RAYS, AND EKG Laboratory Tests: UA-Culture if indicated: (MAICO: 03/09/2017 11:15) ( [facility] 03/09/2017 11:32) Final results Test Result Flag Units (Reference) URINE COLOR STRAW URINE APPEARANCE CLEAR URINE GLUCOSE NEGATIVE (NEGATIVE) URINE BILIRUBIN NEGATIVE (NEGATIVE) URINE KETONE NEGATIVE (NEGATIVE) URINE SPECIFIC GRAVITY <= 1.005 L (1.010-1.030) URINE PH 6.0 (5.0-8.0) URINE PROTEIN NEGATIVE (NEGATIVE) URINE UROBILINOGEN 0.2 EU/dL (0.2-1.0) URINE NITRITE NEGATIVE (NEGATIVE) URINE BLOOD NEGATIVE (NEGATIVE) URINE LEUK ESTERASE NEGATIVE (NEGATIVE) URINE RBC NONE SEEN rbc/hpf (0-1) URINE WBC NONE SEEN wbc/hpf (0-1) URINE EPITHELIAL CELLS NONE SEEN EPI/hpf (0-5) URINE BACTERIA NONE SEEN (NONE SEEN) URINE COMMENT CULT NOT INDICATED URINE CULTURES ARE SET-UP BASED ON THE FOLLOWING CRITERIA:POSITIVE NITRITEPOSITIVE LEUKOCYTE ESTERASEGREATER THAN 10 WHITE BLOOD CELLSMODERATE (2+) OR GREATER BACTERIA CBC w Diff: (MAICO: 03/09/2017 10:02) ( [facility] 03/09/2017 10:23) Final results Test Result Flag Units (Reference) WHITE BLOOD COUNT 8.5 K/uL (4.5-11.5) RED BLOOD COUNT 4.90 M/uL (4.00-5.20) HEMOGLOBIN 13.5 gm/dL (12.0-16.0) HEMATOCRIT 40.0 % (36.0-46.0) MEAN CELL VOLUME 82 fL (80-100) MEAN CORPUSCULAR HGB 28 pg (26-34) MEAN CORPUSCULAR HGB CONC 34 g/dL (31-37) RED CELL DISTRIBUTION WIDTH 14.0 % (11.6-14.8) PLATELET COUNT 232 K/uL (150-400) NEUTROPHIL % 75.6 H % (50-75) LYMPH % 18.9 L % (25-40) MONO % 3.7 % (3-14) EOSINOPHIL % 1.4 % (0-4) BASOPHIL % 0.4 % (0-2) PT with INR: (MAICO: 03/09/2017 10:02) ( [facility] 03/09/2017 10:47) Final results Test Result Flag Units (Reference) INR 1.0 (0.8-1.2) Low Intensity Therapy: INR 1.5-2.0 PT range 18.5-23.1Mod.Intensity Therapy: INR 2.0-3.0 PT range 23.1-31.5High Intensity Therapy: INR 2.5-3.5 PT range 27.4-35.5High Intensity Therapy 2: INR 3.0-4.0 PT range 31.5-39.3 CMP: (MAICO: 03/09/2017 10:02) ( [facility] 03/09/2017 10:28) Final results Test Result Flag Units (Reference) GLUCOSE 110 mg/dL (70-110) BUN 12 mg/dL (7-18) CREATININE 0.9 mg/dL (0.6-1.3) Estimated GFR >60 mL/min Estimated GFR- >60 mL/min Note: Persistent reduction over 3 months in eGFR<60 mL/min/1.73 m2 defines CKD. Patients with eGFR values>=60 mL/min/1.73 m2 may also have CKD if evidence ofpersistent proteinuria. Additional information may be foundat www.kidney.org. SODIUM 139 mmol/L (136-145) POTASSIUM 4.0 mmol/L (3.5-5.1) CHLORIDE 107 mmol/L (98-107) CARBON DIOXIDE 25 mmol/L (21-32) CALCIUM 8.0 L mg/dL (8.5-10.1) TOTAL PROTEIN 6.9 g/dL (6.4-8.2) ALBUMIN 3.2 L g/dL (3.3-5.0) BILIRUBIN, TOTAL 0.4 mg/dL (0.0-1.0) ALKALINE PHOSPHATASE 73 U/L (46-116) AST (SGOT) 14 L U/L (15-37) ALT (SGPT) 17 U/L (12-78) LIPASE 96 U/L (73-393) . PROGRESS AND PROCEDURES Course of Care: the patient is a 41-year-old female presenting for evaluation of nausea and vomiting after starting antibiotic for skin infection of the scalp. Infection seems to be significantly improved at bedside. Patient will be given medications for the nausea and headache. No signs of meningitis at this time. Patient is agreeable to the treatment plan. Workup was workable for the findings above. Patient will be changed on her antibiotic. Had a discussion with the patient in regards to her workup. Emergency department including diagnosis, home care, follow-up, and return precautions. All questions have been answered. The patient expressed understanding of these instructions and was agreeable to them. Disposition: Discharged. Condition: good. CLINICAL IMPRESSION Vomiting with nausea. 03/09/2017 11:43 BP: 144/63. HR: 71. RR: 15. O2 saturation: 99%. Hypertensive. Oxygen saturation normal. Essential hypertension. INSTRUCTIONS (Please stop taking the doxycycline). Warnings: GENERAL WARNINGS: Return or contact your physician immediately if your condition worsens or changes unexpectedly, if not improving as expected, or if other problems arise. SPECIFICALLY, return if you develop pain, fever, vomiting, the inability to keep fluids down, blood in vomitus, blood in diarrhea, fainting or lightheadedness. Prescription Medications: Clindamycin 150 mg: take 3 capsules orally every 8 hours for 7 days. No refill. (Disp 63 caps) Follow-up: Return to the emergency department as needed. Follow up with your doctor in two days. Reason for referral: recheck today's concerns. Summary of care provided to patient via paper. Screening today revealed the patient's blood pressure to be in the hypertensive range. The patient should follow up with a primary care provider for blood pressure management. Understanding of the discharge instructions verbalized by patient. (Electronically signed by Tai Whitehead Dr. 03/11/2017 7:23)
--- NOTE | 2017-03-09 12:20 | ED ORDER SUMMARY ---
..... Patient: TAMIE IBANEZ OrderSheet [facility] VisitID: [id number] [place] [address] 41y, F Registration Date/Time: 03/09/2017 ORDER SHEET Weight: 82.5 kg (stated) Allergies: Compazine, Sulfa Drugs GENERAL ORDERS: CBC w Diff Urgent (03/09/2017 Carlitos Monroy) (Ack 9:29 Leonard) (9:58 KPage-Kuchan R.N.) CMP Urgent (03/09/2017 Carlitos Monroy) (Ack 9:29 Leonard) (9:58 KPage-Kuchan R.N.) UA-Culture if indicated Urgent (03/09/2017 Carlitos Monroy) (Ack 9:29 Leonard) (11:18 PWeiler ER Tech1) PT with INR Urgent (03/09/2017 Carlitos Monroy) (Ack 9:29 Leonard) (9:58 KPage-Kuchan R.N.) Lipase Urgent (03/09/2017 Carlitos Monroy) (Ack 9:29 Leonard) (9:58 KPage-Kuchan R.N.) Pulse oximeter (03/09/2017 Carlitos Monroy) (9:58 KPage-Kuchan R.N.) MEDICATION ORDERS: IV FLUIDS: IV NS : initial bolus 1000 mL (1000 mL/hr), then none - for X1 (NOW) (03/09/2017 Carlitos Monroy) (Ack 9:33 KPage-Kuchan R.N.) (9:57 KPage-Toshian R.N.) Toradol IV 30 mg (NOW) (03/09/2017 Carlitos Monroy) (Ack 9:33 KPage-Kuchan R.N.) (9:57 KPage-Kuchan R.N.) Benadryl IV 25 mg (NOW) (03/09/2017 Carlitos Monroy) (Ack 9:33 KPage-Kuchan R.N.) (9:57 KPage-Toshian R.N.) Reglan IV 10 mg (NOW) (09:27 03/09/2017 Carlitos Monroy) (Ack 9:33 KPage-Maxchan R.N.) (9:58 KPage-Maxchan R.N.) ORDER SHEET NOTES: [Electronically signed by Sulma Bahena R.N. (13:03/09/2017)] [Electronically signed by Tai Whitehead Dr. (07:23 03/11/2017)] [Electronically locked/signed by Sulma Bahena R.N. (13:28 03/09/2017)]
--- NOTE | 2017-03-09 12:20 | ED ORDER SUMMARY ---
..... Patient: TAMIE IBANEZ OrderSheet [facility] VisitID: [id number] [place] [address] 41y, F Registration Date/Time: 03/09/2017 ORDER SHEET Weight: 82.5 kg (stated) Allergies: Compazine, Sulfa Drugs GENERAL ORDERS: CBC w Diff Urgent (03/09/2017 Carlitos Monroy) (Ack 9:29 Leonard) (9:58 KPage-Kuchan R.N.) CMP Urgent (03/09/2017 Carlitos Monroy) (Ack 9:29 Leonard) (9:58 KPage-Kuchan R.N.) UA-Culture if indicated Urgent (03/09/2017 Carlitos Monroy) (Ack 9:29 Leonard) (11:18 PWeiler ER Tech1) PT with INR Urgent (03/09/2017 Carlitos Monroy) (Ack 9:29 Leonard) (9:58 KPage-Kuchan R.N.) Lipase Urgent (03/09/2017 Carlitos Monroy) (Ack 9:29 Leonard) (9:58 KPage-Kuchan R.N.) Pulse oximeter (03/09/2017 Carlitos Monroy) (9:58 KPage-Kuchan R.N.) MEDICATION ORDERS: IV FLUIDS: IV NS : initial bolus 1000 mL (1000 mL/hr), then none - for X1 (NOW) (03/09/2017 Carlitos Monroy) (Ack 9:33 KPage-Kuchan R.N.) (9:57 KPage-Toshian R.N.) Toradol IV 30 mg (NOW) (03/09/2017 Carlitos Monroy) (Ack 9:33 KPage-Kuchan R.N.) (9:57 KPage-Kuchan R.N.) Benadryl IV 25 mg (NOW) (03/09/2017 Carlitos Monroy) (Ack 9:33 KPage-Kuchan R.N.) (9:57 KPage-Toshian R.N.) Reglan IV 10 mg (NOW) (09:27 03/09/2017 Carlitos Monroy) (Ack 9:33 KPage-Maxchan R.N.) (9:58 KPage-Maxchan R.N.) ORDER SHEET NOTES: [Electronically signed by Sulma Bahena R.N. (13:03/09/2017)] [Electronically signed by Tai Whitehead Dr. (07:23 03/11/2017)] [Electronically locked/signed by Sulma Bahena R.N. (13:28 03/09/2017)]
--- NOTE | 2017-03-11 07:23 | ED MAR SUMMARY ---
..... Medication Administration Record [facility] [address] [place] [address] Patient: TAMIE IBANEZ Visit ID: [id number] 41y, F Weight: 82.5 kg Height/Length: 60 in BMI: 35.5 ALLERGIES: Compazine, Sulfa Drugs Start 09:03/09/2017 Sulma Bahena R.N. Medication Administered: IV NS (SALINE), Dose: IV Fluids, Rate: 1000 mL/hr, Dispensed: 1000 mL bag, Site: #1 left hand. Medication Ordered: IV NS : initial bolus 1000 mL (1000 mL/hr), then none - for X1 (NOW). Given :03/09/2017 Sulma Bahena R.N. Medication Administered: TORADOL [IVP], Dose: 30 mg IVP, Site: #1 left hand. Medication Ordered: Toradol IV 30 mg (NOW). Given :03/09/2017 Sulma Bahena R.N. Medication Administered: BENADRYL [IVP] (DIPHENHYDRAMINE HCL), Dose: 25 mg IVP, Site: #1 left hand. Medication Ordered: Benadryl IV 25 mg (NOW). Given :03/09/2017 Sulma Bahena R.N. Medication Administered: REGLAN [IVP] (METOCLOPRAMIDE HCL), Dose: 10 mg IVP, Site: #1 left hand. Medication Ordered: Reglan IV 10 mg (NOW).
--- NOTE | 2017-03-11 07:23 | ED MAR SUMMARY ---
..... Medication Administration Record [facility] [address] [place] [address] Patient: TAMIE IBANEZ Visit ID: [id number] 41y, F Weight: 82.5 kg Height/Length: 60 in BMI: 35.5 ALLERGIES: Compazine, Sulfa Drugs Start 09:03/09/2017 Sulma Bahena R.N. Medication Administered: IV NS (SALINE), Dose: IV Fluids, Rate: 1000 mL/hr, Dispensed: 1000 mL bag, Site: #1 left hand. Medication Ordered: IV NS : initial bolus 1000 mL (1000 mL/hr), then none - for X1 (NOW). Given :03/09/2017 Sulma Bahena R.N. Medication Administered: TORADOL [IVP], Dose: 30 mg IVP, Site: #1 left hand. Medication Ordered: Toradol IV 30 mg (NOW). Given :03/09/2017 Sulma Bahena R.N. Medication Administered: BENADRYL [IVP] (DIPHENHYDRAMINE HCL), Dose: 25 mg IVP, Site: #1 left hand. Medication Ordered: Benadryl IV 25 mg (NOW). Given :03/09/2017 Sulma Bahena R.N. Medication Administered: REGLAN [IVP] (METOCLOPRAMIDE HCL), Dose: 10 mg IVP, Site: #1 left hand. Medication Ordered: Reglan IV 10 mg (NOW).
--- NOTE | 2017-03-11 07:23 | ED MED RECONCILIATION SUMMARY ---
Patient: TAMIE IBANEZ Medication Reconciliation Report [facility] VisitID: [id number] [place] [address] 41y, F Registration Date/Time: 03/09/2017 Weight: 82.5 kg Height/Length: 60 in. BMI: 35.5 ALLERGIES: Compazine, Sulfa Drugs The patient's Home Medications are listed below: THE FOLLOWING MEDICATIONS NEED TO BE RECONCILED: Chlorthalidone Oral (50 mg) 1 tablet, daily MetFORMIN HCl Oral 500 mg, 3x a day The source(s) of the original Home Medication information: patient The following Medications were given to the patient in the Emergency Department: IV NS IV Fluids bolus 0, then 1000 mL/hr, administered: 03/09/2017 9:52:00 AM Toradol [IVP] IVP 30 mg, administered: 03/09/2017 9:52:00 AM Benadryl [IVP] IVP 25 mg, administered: 03/09/2017 9:52:00 AM Reglan [IVP] IVP 10 mg, administered: 03/09/2017 9:53:00 AM The following Medications were prescribed to the patient: Clindamycin 150 mg: take 3 capsules orally every 8 hours for 7 days. No refill.(Disp 63 caps) -- Tai Whitehead Dr.
--- NOTE | 2017-03-11 07:23 | ED DISCHARGE INSTRUCTIONS ---
Patient: TAMIE IBANEZ General Instructions [facility] VisitID: [id number] [place] [address] 41y, F Registration Date/Time: 03/09/2017 Vomiting with nausea. 03/09/2017 11:43 BP: 144/63. HR: 71. RR: 15. O2 saturation: 99%. Hypertensive. Oxygen saturation normal. Essential hypertension. INSTRUCTIONS (Please stop taking the doxycycline). Warnings: GENERAL WARNINGS: Return or contact your physician immediately if your condition worsens or changes unexpectedly, if not improving as expected, or if other problems arise. SPECIFICALLY, return if you develop pain, fever, vomiting, the inability to keep fluids down, blood in vomitus, blood in diarrhea, fainting or lightheadedness. Prescription Medications: Clindamycin 150 mg: take 3 capsules orally every 8 hours for 7 days. No refill. (Disp 63 caps) Follow-up: Return to the emergency department as needed. Follow up with your doctor in two days. Reason for referral: recheck today's concerns. Summary of care provided to patient via paper. Screening today revealed the patient's blood pressure to be in the hypertensive range. The patient should follow up with a primary care provider for blood pressure management. Understanding of the discharge instructions verbalized by patient. ADDITIONAL INFORMATION Vomiting [6Yr-Adult] Vomiting is a common symptom that may be due to different causes. These include gastroenteritis ("stomach flu"), food poisoning and gastritis. There are other more serious causes of vomiting which may be hard to diagnose early in the illness. Therefore, it is important to watch for the warning signs listed below. The main danger from repeated vomiting is dehydration. This is due to excess loss of water and minerals from the body. When this occurs, body fluids must be replaced. Home Care: If symptoms are severe, rest at home for the next 24 hours. You may use acetaminophen (Tylenol) or ibuprofen (Motrin, Advil) to control fever, unless another medicine was prescribed. [NOTE : If you have chronic liver or kidney disease or ever had a stomach ulcer or GI bleeding, talk with your doctor before using these medicines.] (Aspirin should never be used in anyone under 18 years of age who is ill with a fever. It may cause severe liver damage.) Avoid tobacco and alcohol use, which may worsen your symptoms. If medicines for vomiting were prescribed, take as directed. Once vomiting stops, then follow these guidelines: During The First 12-24 Hours follow the diet below: FRUIT JUICES: Apple, grape juice, clear fruit drinks, and electrolyte replacement drinks. BEVERAGES: Soft drinks without caffeine; mineral water (plain or flavored), decaffeinated tea and coffee. SOUPS: Clear broth, consomm and bouillon DESSERTS: Plain gelatin, popsicles and fruit juice bars. As you feel better, you may add 6-8 ounces of yogurt per day. During The Next 24 Hours you may add the following to the above: Hot cereal, plain toast, bread, rolls, crackers Plain noodles, rice, mashed potatoes, chicken noodle or rice soup Unsweetened canned fruit (avoid pineapple), bananas Limit caffeine and chocolate. No spices or seasonings except salt. During The Next 24 Hours Gradually resume a normal diet, as you feel better and your symptoms lessen. Follow Up with your doctor as advised if you are not improving over the next 2-3 days. Get Prompt Medical Attention if any of the following occur: Constant right-sided lower abdominal pain or increasing general abdominal pain Continued vomiting (unable to keep liquids down) for 24 hours Frequent diarrhea (more than 5 times a day); blood (red or black color) or mucus in diarrhea Reduced urine output or extreme thirst Weakness, dizziness or fainting Unusually drowsy or confused Fever of 100.4F (38C) oral or higher, not better with fever medication Yellow color of the eyes or skin High Blood Pressure -- To Be Confirmed [No Tx] Your blood pressure was higher today than normal. Sometimes anxiety or pain can cause a temporary rise in blood pressure that later returns to normal. If your blood pressure is high on one measurement, this does not mean that you have hypertension (a chronic illness). However, you must have your blood pressure measured again within the next few days to find out if its still high. A normal blood pressure is 120/80 or less. The first (top) number is the "systolic" pressure. The second (bottom) number is the "diastolic" pressure. Hypertension exists when either the top number is 140 or higher, OR the bottom number is 90 or higher on repeated measurements. Blood pressure in the range of 120-140 (systolic) or 80-89 (diastolic) is considered "pre-hypertension". This means your are at risk for getting hypertension. You should have regular blood pressure checks to be sure your blood pressure is not rising. Home Care: Measure your blood pressure on 3 different days and write down the results. This can be done at your doctor's office or this facility. Some pharmacies and grocery stores offer automated blood pressure machines for your use. Follow Up: If your blood pressure is "high" (over 120/80) on 2 out of 3 days, you will need to follow up with your doctor for further evaluation and treatment. DO NOT PUT THIS OFF! Untreated high blood pressure increases the risk for heart attack, also known as acute myocardial infarction, or AMI, and stroke. It is a treatable condition. Get Prompt Medical Attention if any of the following occur: Chest pain or shortness of breath Severe headache Throbbing or rushing sound in the ears Nosebleed Sudden severe abdominal pain Extreme drowsiness, confusion or fainting Dizziness or vertigo (dizziness with spinning sensation) Weakness of an arm or leg or one side of the face Difficulty with speech or vision Clindamycin Hydrochloride Oral capsule What is this medicine? CLINDAMYCIN (KLIN da TONY sin) is a lincosamide antibiotic. It is used to treat certain kinds of bacterial infections. It will not work for colds, flu, or other viral infections. How should I use this medicine? Take this medicine by mouth with a full glass of water. Follow the directions on the prescription label. You can take this medicine with food or on an empty stomach. If the medicine upsets your stomach, take it with food. Take your medicine at regular intervals. Do not take your medicine more often than directed. Take all of your medicine as directed even if you think your are better. Do not skip doses or stop your medicine early. Talk to your appraiser art regarding the use of this medicine in children. Special care may be needed. What side effects may I notice from receiving this medicine? Side effects that you should report to your doctor or health home health care social worker as soon as possible: allergic reactions like skin rash, itching or hives, swelling of the face, lips, or tongue dark urine pain on swallowing redness, blistering, peeling or loosening of the skin, including inside the mouth unusual bleeding or bruising unusually weak or tired yellowing of eyes or skin Side effects that usually do not require medical attention (report to your doctor or health home health care social worker if they continue or are bothersome): diarrhea itching in the rectal or genital area joint pain nausea, vomiting stomach pain What may interact with this medicine? chloramphenicol erythromycin kaolin products What if I miss a dose? If you miss a dose, take it as soon as you can. If it is almost time for your next dose, take only that dose. Do not take double or extra doses. Where should I keep my medicine? Keep out of the reach of children. Store at room temperature between 20 and 25 degrees C (68 and 77 degrees F). Throw away any unused medicine after the expiration date. What should I tell my health care provider before I take this medicine? They need to know if you have any of these conditions: kidney disease liver disease stomach problems like colitis an unusual or allergic reaction to clindamycin, lincomycin, or other medicines, foods, dyes like tartrazine or preservatives or trying to get breast-feeding What should I watch for while using this medicine? Tell your doctor or healthcare professional if your symptoms do not start to get better or if they get worse. Do not treat diarrhea with over the counter products. Contact your doctor if you have diarrhea that lasts more than 2 days or if it is severe and watery. You have been given the following additional information: Vomiting (6Y-Adult) Hypertension, To Be Confirmed Clindamycin Hydrochloride Oral capsule (Electronically signed by Tai Whitehead Dr. 03/11/2017 7:23)
--- NOTE | 2017-03-11 07:23 | ED MED RECONCILIATION SUMMARY ---
Patient: TAMIE IBANEZ Medication Reconciliation Report [facility] VisitID: [id number] [place] [address] 41y, F Registration Date/Time: 03/09/2017 Weight: 82.5 kg Height/Length: 60 in. BMI: 35.5 ALLERGIES: Compazine, Sulfa Drugs The patient's Home Medications are listed below: THE FOLLOWING MEDICATIONS NEED TO BE RECONCILED: Chlorthalidone Oral (50 mg) 1 tablet, daily MetFORMIN HCl Oral 500 mg, 3x a day The source(s) of the original Home Medication information: patient The following Medications were given to the patient in the Emergency Department: IV NS IV Fluids bolus 0, then 1000 mL/hr, administered: 03/09/2017 9:52:00 AM Toradol [IVP] IVP 30 mg, administered: 03/09/2017 9:52:00 AM Benadryl [IVP] IVP 25 mg, administered: 03/09/2017 9:52:00 AM Reglan [IVP] IVP 10 mg, administered: 03/09/2017 9:53:00 AM The following Medications were prescribed to the patient: Clindamycin 150 mg: take 3 capsules orally every 8 hours for 7 days. No refill.(Disp 63 caps) -- Tai Whitehead Dr.
== END 2017-03-09 12:54 | disposition home or self-care (01) ==
LOC: ED SRH 09:04
DX: R11.2 Nausea with vomiting, unspecified (principal); R51 Headache; I10 Essential (primary) hypertension; Z79.899 Other long term (current) drug therapy; Z79.84 Long term (current) use of oral hypoglycemic drugs; Z88.2 Allergy status to sulfonamides; Z88.8 Allergy status to other drugs, medicaments and biological substances
CPT/HCPCS: 90004; 90074; 90100; 92235; 94060; 95059